=== PATIENT | female | born 1945 | race Caucasian/White ===

== ENCOUNTER 2023-10-06 13:25 | Inpatient (IN) | payer OTHER ==
[~2023-10-06] VITALS: Ht 157.5 cm; Wt 68.8 kg
[2023-10-06 14:03] VITALS: PULSE 114; RESP 21; O2SAT 97
[2023-10-06 14:46] LABS: Basophils # (auto) 0 10 ^3/uL (0-0.2); Basophils % (auto) 0.2 % (0.0-2.0); Eosinophils # (auto) 0 10 ^3/uL (0-0.8); Hemoglobin 13.7 g/dL (12.2-16.2); Lymphocytes # (auto) 0.4 10 ^3/uL (0.4-5.4); Lymphocytes % (auto) 3.6 % (10.0-50.0); Mean Corpuscular Hemoglobin 32.8 pg (28.0-32.0); Mean Corpuscular Hgb Conc. 32.6 g/dL (32.0-36.0); Mean Corpuscular Volume 100.6 fL (80.0-100.0); Monocytes # (auto) 0.7 10 ^3/uL (0-1.3); Monocytes % (auto) 6.7 % (0.0-12.0); Neutrophils # (auto) 9.4 10 ^3/uL (1.6-8.6); Neutrophils % (auto) 89.5 % (37.0-80.0); Red Blood Cells 4.18 10^6/uL (4.0-5.20); Red Cell Distribution Width 14.5 % (11.8-14.3); White Blood Cell 10.5 10^3/uL (4.4-10.8)
[2023-10-06 14:51] LABS: Urine Bacteria FEW /hpf (None Seen); Urine Blood 2+ /uL (Negative); Urine Clarity CLOUDY (Clear); Urine Color Yellow (Yellow); Urine Protein, UAD 2+ (Negative); Urine Specific Gravity 1.015 (1.001-1.035); Urine Urobilinogen Normal (Negative); Urine WBC 2136 /hpf (0 - 5); Urine WBC Clumps PRESENT /hpf (None Seen)
[2023-10-06] MEDS ORDERED: cefTRIAXone 1GM/50ML D5W 50 ML IV ONE ×2 (15:00→15:11)
[2023-10-06] MEDS ORDERED: SODIUM CHLORIDE 0.9% 1,000 ML IV ONE ×2 (15:00→16:45)
[2023-10-06 15:01] LABS: Alanine Aminotransferase 19 U/L (7-40); Alkaline Phosphatase 78 U/L (46-116); Anion Gap 11 (5-15); Aspartate Aminotransferase 26 U/L (13-40); BUN/Creatinine Ratio 11.9 (10.0-20.0); Blood Urea Nitrogen 23 mg/dL (9-23); Calcium 9.2 mg/dL (8.7-10.4); Carbon Dioxide 16 mmol/L (20-30); Chloride 102 mmol/L (98-107); Glucose 308 mg/dL (74-106); Potassium 4.9 mmol/L (3.5-5.1); Sodium 129 mmol/L (136-145)
[2023-10-06 15:02] LABS: Albumin 4.5 g/dL (3.2-4.8); Bilirubin, Total 0.4 mg/dL (0.2-1.0); Total Protein 6.9 g/dL (5.7-8.2)
[2023-10-06] MEDS ORDERED: ACETAMINOPHEN 325 MG TAB PO ONE ×2 (15:11→15:15)
[2023-10-06] MEDS ORDERED: DEXTROSE (50%) 50ML SYRG IV PRN ×2 (16:00→16:45)
[2023-10-06] MEDS ORDERED: NITROGLYCERIN 0.4 MG SL TAB SL PRN (16:45)
[2023-10-06] MEDS ORDERED: MECLIZINE HCL 25 MG TAB PO PRN (16:45)
[2023-10-06] MEDS ORDERED: MORPHINE SULFATE INJ 2 MG/ml SYRG IV PRN (16:45)
[2023-10-06] MEDS ORDERED: ATOR20TA50 PO (16:48)
[2023-10-06] MEDS ORDERED: ACYC1TAB2 PO (16:48)
[2023-10-06] MEDS ORDERED: ALBU108A5 INH (16:48)
[2023-10-06] MEDS ORDERED: NIFE1TAB31 PO (16:48)
[2023-10-06] MEDS ORDERED: HYDR1TAB97 PO (16:48)
[2023-10-06] MEDS ORDERED: LIDO1PAD55 TOP (16:48)
[2023-10-06] MEDS ORDERED: PREG-109 PO (16:48)
[2023-10-06] MEDS ORDERED: [UNRECOGNIZED DRUG - CODE] (16:48)
[2023-10-06] MEDS ORDERED: PANT40T PO (16:48)
[2023-10-06] MEDS ORDERED: DEXA4TAB PO (16:48)
[2023-10-06] MEDS ORDERED: TACR1CAP4 PO (16:48)
[2023-10-06] MEDS ORDERED: PRE5T PO (16:48)
[2023-10-06] MEDS ORDERED: InsuLIN REG 1unit/0.01ml Soln (100units/ml) SC SCH (17:00)
[2023-10-06] MEDS ORDERED: ACCU-CHEK COMFORT CURVE STRIP VI SCH (17:00)
[2023-10-06] MEDS ORDERED: HYDROcodone-ACET 5/325MG TAB PO ONE (17:00)
[2023-10-06] MEDS ORDERED: InsuLIN REG 1unit/0.01ml Soln (100units/ml) ONE ×2 (17:01→22:22)
[2023-10-06] MEDS ORDERED: HYDROcodone-ACET 5/325MG TAB ONE ×2 (17:02→21:28)
[2023-10-06] MEDS: InsuLIN REG 1unit/0.01ml Soln (100units/ml) SC SCH ×2 (17:03→22:07)
[2023-10-06] MEDS: ACCU-CHEK COMFORT CURVE STRIP VI SCH ×2 (17:04→22:06)
[2023-10-06] MEDS: SODIUM CHLORIDE 0.9% 1,000 ML IV SCH (18:36)
[2023-10-06 20:00] VITALS: PULSE 93; RESP 20; O2SAT 94
[2023-10-06] MEDS: HYDROcodone-ACET 5/325MG TAB PO PRN (21:29)
[2023-10-06] MEDS ORDERED: ACETAMINOPHEN 650 MG RECT SUPP PR PRN (21:45)
[2023-10-06] MEDS ORDERED: ACETAMINOPHEN 650 MG RECT SUPP PR ONE (22:00)
[2023-10-06] MEDS: TACROLIMUS 1 MG CAP PO SCH (22:00)
[2023-10-06] MEDS: PREGABALIN CAPSULE 75 MG CAP PO SCH (22:00)
[2023-10-06 23:09] LABS: Amphetamine Screen, Urine Neg (NEGATIVE); Barbiturate Scree,Urine Neg (NEGATIVE); Benzodiazephine Screen, Urine Neg (NEGATIVE); Cocaine Screen, Urine Neg (NEGATIVE); Opiate Scree,Urine Neg (NEGATIVE); Phencyclidine Screen, Urine Neg (NEGATIVE)
[2023-10-06 23:10] LABS: Cannabinoid Screen, Urine Neg (NEGATIVE)
[2023-10-07] MEDS: ACETAMINOPHEN 325 MG TAB PO PRN (04:29)
[2023-10-07 06:13] LABS: Basophils # (auto) 0 10 ^3/uL (0-0.2); Basophils % (auto) 0.3 % (0.0-2.0); Eosinophils # (auto) 0 10 ^3/uL (0-0.8); Hematocrit 35.7 % (36.0-46.0); Lymphocytes # (auto) 0.2 10 ^3/uL (0.4-5.4); Mean Corpuscular Hgb Conc. 33.6 g/dL (32.0-36.0); Mean Corpuscular Volume 98.1 fL (80.0-100.0); Monocytes # (auto) 0.4 10 ^3/uL (0-1.3); Monocytes % (auto) 4.9 % (0.0-12.0); Neutrophils % (auto) 91.8 % (37.0-80.0); Nucleated Red Blood Cells % 0.1 %; Red Blood Cells 3.64 10^6/uL (4.0-5.20); Red Cell Distribution Width 14.2 % (11.8-14.3); White Blood Cell 7.6 10^3/uL (4.4-10.8)
[2023-10-07 06:31] LABS: Alanine Aminotransferase 16 U/L (7-40); Albumin 3.7 g/dL (3.2-4.8); Alkaline Phosphatase 69 U/L (46-116); Anion Gap 13 (5-15); Aspartate Aminotransferase 22 U/L (13-40); BUN/Creatinine Ratio 15.3 (10.0-20.0); Bilirubin, Total 0.3 mg/dL (0.2-1.0); Blood Urea Nitrogen 24 mg/dL (9-23); Calcium 8.7 mg/dL (8.5-10.1); Carbon Dioxide 15 mmol/L (20-30); Chloride 110 mmol/L (98-107); Glucose 198 mg/dL (74-106); Potassium 4.3 mmol/L (3.5-5.1); Sodium 138 mmol/L (136-145); Total Protein 5.7 g/dL (5.7-8.2)
[2023-10-07] MEDS: ACCU-CHEK COMFORT CURVE STRIP VI SCH ×4 (07:07→21:34)
[2023-10-07] MEDS: InsuLIN REG 1unit/0.01ml Soln (100units/ml) SC SCH ×4 (07:09→21:50)
[2023-10-07] MEDS: HYDROcodone-ACET 5/325MG TAB PO PRN ×2 (08:03→21:49)
[2023-10-07] MEDS ORDERED: cefTRIAXone 1GM/50ML D5W 50 ML IV SCH (09:00)
[2023-10-07] MEDS: SODIUM CHLORIDE 0.9% 1,000 ML IV SCH ×2 (09:38→21:49)
[2023-10-07] MEDS ORDERED: SODI650T PO (09:41)
[2023-10-07] MEDS ORDERED: INSU100I52 SC (09:41)
[2023-10-07] MEDS ORDERED: INSLANTI SC (09:41)
[2023-10-07] MEDS ORDERED: NIFEdipine ER 30 MG TAB PO ONE (10:27)
[2023-10-07] MEDS ORDERED: PREGABALIN CAPSULE 75 MG CAP ONE (10:28)
[2023-10-07] MEDS: PREGABALIN CAPSULE 75 MG CAP PO SCH (10:30)
[2023-10-07] MEDS: PANTOPRAZOLE 40 MG TAB PO SCH (10:30)
[2023-10-07] MEDS: ATORVASTATIN 20 MG TAB PO SCH (10:30)
[2023-10-07] MEDS: NIFEdipine ER 30 MG TAB PO SCH (10:31)
[2023-10-07] MEDS: TACROLIMUS 1 MG CAP PO SCH ×2 (11:34→21:49)
[2023-10-07] MEDS ORDERED: SODIUM CHLORIDE 0.9% 1,000 ML IV SCH (12:30)
[2023-10-07] MEDS ORDERED: MEROPENEM 1GM IVPB 100 ML IV ONE ×3 (12:30→21:49)
[2023-10-07] MEDS ORDERED: SODIUM CHLORIDE 0.9% 500 ML IV ONE (12:30)
[2023-10-07] MEDS ORDERED: MEROPENEM 500 MG IV ONE (13:21)
[2023-10-07] MEDS ORDERED: hydrALAZINE HCL 20 MG/ML VL ONE (18:43)
[2023-10-07] MEDS: hydrALAZINE HCL 20 MG/ML VL IV PRN (18:45)
[2023-10-07 19:32] VITALS: PULSE 130; RESP 25; O2SAT 95
[2023-10-07] MEDS ORDERED: HYDROcodone-ACET 5/325MG TAB ONE (21:46)
[2023-10-07] MEDS: MEROPENEM 1GM IVPB 100 ML IV SCH (21:49)
[2023-10-08] MEDS: ACETAMINOPHEN 325 MG TAB PO PRN (02:23)
[2023-10-08 04:40] LABS: Alanine Aminotransferase 16 U/L (7-40); Albumin 3.4 g/dL (3.2-4.8); Alkaline Phosphatase 55 U/L (46-116); Anion Gap 12 (5-15); Aspartate Aminotransferase 25 U/L (13-40); Bilirubin, Total 0.3 mg/dL (0.2-1.0); Blood Urea Nitrogen 17 mg/dL (9-23); Calcium 8.2 mg/dL (8.7-10.4); Carbon Dioxide 13 mmol/L (20-30); Chloride 111 mmol/L (98-107); Glucose 163 mg/dL (74-106); Magnesium 1.9 mg/dL (1.6-2.6); Potassium 3.9 mmol/L (3.5-5.1); Sodium 136 mmol/L (136-145)
[2023-10-08 04:41] LABS: Total Protein 5.2 g/dL (5.7-8.2)
[2023-10-08 05:45] LABS: Basophils # (auto) 0 10 ^3/uL (0-0.2); Basophils % (auto) 0.4 % (0.0-2.0); Eosinophils # (auto) 0 10 ^3/uL (0-0.8); Hematocrit 35.8 % (36.0-46.0); Hemoglobin 11.6 g/dL (12.2-16.2); Lymphocytes # (auto) 0.4 10 ^3/uL (0.4-5.4); Lymphocytes % (auto) 4.3 % (10.0-50.0); Mean Corpuscular Hemoglobin 32.1 pg (28.0-32.0); Mean Corpuscular Hgb Conc. 32.4 g/dL (32.0-36.0); Mean Corpuscular Volume 99.3 fL (80.0-100.0); Monocytes # (auto) 0.5 10 ^3/uL (0-1.3); Monocytes % (auto) 5.6 % (0.0-12.0); Neutrophils # (auto) 8.2 10 ^3/uL (1.6-8.6); Neutrophils % (auto) 89.7 % (37.0-80.0); Red Blood Cells 3.61 10^6/uL (4.0-5.20); Red Cell Distribution Width 14.3 % (11.8-14.3); White Blood Cell 9.1 10^3/uL (4.4-10.8)
[2023-10-08] MEDS: InsuLIN REG 1unit/0.01ml Soln (100units/ml) SC SCH ×4 (07:00→22:46)
[2023-10-08 07:15] VITALS: PULSE 104; RESP 19; O2SAT 95
[2023-10-08] MEDS: ACCU-CHEK COMFORT CURVE STRIP VI SCH ×4 (07:45→22:45)
[2023-10-08] MEDS ORDERED: HYDROcodone-ACET 5/325MG TAB ONE (08:27)
[2023-10-08] MEDS: HYDROcodone-ACET 5/325MG TAB PO PRN (08:28)
[2023-10-08] MEDS: SODIUM CHLORIDE 0.9% 1,000 ML IV SCH ×2 (09:42→16:33)
[2023-10-08] MEDS: ATORVASTATIN 20 MG TAB PO SCH (10:18)
[2023-10-08] MEDS: PANTOPRAZOLE 40 MG TAB PO SCH (10:18)
[2023-10-08] MEDS: NIFEdipine ER 30 MG TAB PO SCH (10:19)
[2023-10-08] MEDS: PREGABALIN CAPSULE 75 MG CAP PO SCH (10:19)
[2023-10-08] MEDS: TACROLIMUS 1 MG CAP PO SCH ×2 (10:20→17:39)
[2023-10-08] MEDS ORDERED: MEROPENEM 1GM IVPB 100 ML IV ONE ×2 (10:40→22:54)
[2023-10-08] MEDS: MEROPENEM 1GM IVPB 100 ML IV SCH ×2 (10:41→22:58)
[2023-10-08] MEDS ORDERED: hydrALAZINE HCL 20 MG/ML VL ONE (16:44)
[2023-10-08] MEDS: hydrALAZINE HCL 20 MG/ML VL IV PRN (16:47)
[2023-10-08] MEDS: SODIUM BICARBONATE 650 MG TAB PO SCH ×2 (17:39→22:57)
[2023-10-08] MEDS ORDERED: SODIUM BICARBONATE 650 MG TAB ONE ×2 (17:39→22:54)
[2023-10-08] MEDS ORDERED: HYDROmorphone HCL 2 MG/ML VL/or syr ONE (17:50)
[2023-10-08] MEDS: HYDROmorphone HCL 2 MG/ML VL/or syr IV PRN (17:52)
[2023-10-08 20:12] VITALS: PULSE 107; RESP 15; O2SAT 92
[2023-10-08] MEDS ORDERED: ACETAMINOPHEN 650 MG RECT SUPP PR ONE (20:43)
[2023-10-09] MEDS: HYDROcodone-ACET 5/325MG TAB PO PRN ×3 (05:43→23:44)
[2023-10-09] MEDS: SODIUM BICARBONATE 650 MG TAB PO SCH ×4 (06:14→21:24)
[2023-10-09] MEDS: ACCU-CHEK COMFORT CURVE STRIP VI SCH ×4 (06:46→21:22)
[2023-10-09] MEDS: InsuLIN REG 1unit/0.01ml Soln (100units/ml) SC SCH ×4 (06:55→21:35)
[2023-10-09] MEDS ORDERED: TACROLIMUS 0.5 MG CAP PO SCH (07:00)
[2023-10-09 08:22] VITALS: PULSE 95; RESP 16; O2SAT 96
[2023-10-09] MEDS: PANTOPRAZOLE 40 MG TAB PO SCH (11:53)
[2023-10-09] MEDS: ATORVASTATIN 20 MG TAB PO SCH (11:53)
[2023-10-09] MEDS: PREGABALIN CAPSULE 75 MG CAP PO SCH (11:53)
[2023-10-09] MEDS: NIFEdipine ER 30 MG TAB PO SCH (11:53)
[2023-10-09] MEDS: MEROPENEM 1GM IVPB 100 ML IV SCH (11:54)
[2023-10-09 16:59] VITALS: BP 130/63; PULSE 91; RESP 20; TEMP 98.4; O2SAT 96
[2023-10-09 17:00] VITALS: BP 124/58; PULSE 98; RESP 22; TEMP 98.5; O2SAT 96
[2023-10-09] MEDS: SODIUM CHLORIDE 0.9% 1,000 ML IV SCH (18:27)
[2023-10-09] MEDS: TACROLIMUS 1 MG CAP PO SCH (18:28)
[2023-10-09 20:00] VITALS: PULSE 95; PULSE 99; RESP 20; O2SAT 93
[2023-10-09] MEDS: ACETAMINOPHEN 325 MG TAB PO PRN (21:30)
[2023-10-09 22:00] VITALS: BP 133/63; PULSE 95; RESP 20; TEMP 98.2; O2SAT 93
[2023-10-09] MEDS ORDERED: DOXYCYCLINE 100 MG TAB/CAP PO SCH (22:00)
[2023-10-09] MEDS: AMPICILLIN SOD 2GM INJ 2 GM in SODIUM CHL 0.9% 100 ML IV SCH (23:44)
[2023-10-10] VITALS (7 sets, daily range): BP systolic 131–163; BP diastolic 66–75; PULSE 86–103; RESP 18–20; TEMP 97.8–98.5; O2SAT 94–97
[2023-10-10] MEDS: AMPICILLIN SOD 2GM INJ 2 GM in SODIUM CHL 0.9% 100 ML IV SCH ×4 (06:17→23:38)
[2023-10-10] MEDS: ACCU-CHEK COMFORT CURVE STRIP VI SCH ×4 (06:17→23:04)
[2023-10-10] MEDS: SODIUM BICARBONATE 650 MG TAB PO SCH ×4 (06:17→22:57)
[2023-10-10] MEDS: TACROLIMUS 1 MG CAP PO SCH ×2 (06:17→18:09)
[2023-10-10] MEDS: InsuLIN REG 1unit/0.01ml Soln (100units/ml) SC SCH ×4 (06:29→23:04)
[2023-10-10] MEDS: ACETAMINOPHEN 325 MG TAB PO PRN ×2 (06:30→15:10)
[2023-10-10 06:47] LABS: Chloride 111 mmol/L (98-107); Potassium 3.9 mmol/L (3.5-5.1); Sodium 138 mmol/L (136-145)
[2023-10-10 06:48] LABS: Anion Gap 8 (5-15); Calcium 8.9 mg/dL (8.5-10.1); Carbon Dioxide 19 mmol/L (20-30)
[2023-10-10 06:53] LABS: Glucose 167 mg/dL (74-106)
[2023-10-10 06:54] LABS: Blood Urea Nitrogen 16 mg/dL (9-23)
[2023-10-10] MEDS: ATORVASTATIN 20 MG TAB PO SCH (10:28)
[2023-10-10] MEDS: PANTOPRAZOLE 40 MG TAB PO SCH (10:28)
[2023-10-10] MEDS: PREGABALIN CAPSULE 75 MG CAP PO SCH (10:28)
[2023-10-10] MEDS: NIFEdipine ER 30 MG TAB PO SCH (10:29)
[2023-10-10] MEDS ORDERED: PRED1PAK7 PO (10:33)
[2023-10-10] MEDS: HYDROcodone-ACET 5/325MG TAB PO PRN ×2 (10:36→18:44)
[2023-10-10] MEDS: SODIUM CHLORIDE 0.9% 1,000 ML IV SCH (16:30)
[2023-10-10] MEDS: hydrALAZINE HCL 20 MG/ML VL IV PRN (18:02)
[2023-10-10] MEDS ORDERED: ONDANSETRON HCL 4 MG/2 ML VIAL IV PRN (20:45)
[2023-10-10] MEDS: HYDROmorphone HCL 2 MG/ML VL/or syr IV PRN (21:36)
[2023-10-11] VITALS (8 sets, daily range): BP systolic 128–185; BP diastolic 51–78; PULSE 90–109; RESP 17–20; TEMP 97.1–98.9; O2SAT 95–100
[2023-10-11] MEDS: AMPICILLIN SOD 2GM INJ 2 GM in SODIUM CHL 0.9% 100 ML IV SCH ×4 (06:14→23:15)
[2023-10-11] MEDS: SODIUM BICARBONATE 650 MG TAB PO SCH ×4 (06:17→20:50)
[2023-10-11] MEDS: TACROLIMUS 1 MG CAP PO SCH ×2 (06:18→17:18)
[2023-10-11] MEDS: InsuLIN REG 1unit/0.01ml Soln (100units/ml) SC SCH ×4 (06:20→21:31)
[2023-10-11] MEDS: ACCU-CHEK COMFORT CURVE STRIP VI SCH ×4 (06:20→21:31)
[2023-10-11] MEDS: PREGABALIN CAPSULE 75 MG CAP PO SCH (09:29)
[2023-10-11] MEDS: NIFEdipine ER 30 MG TAB PO SCH (09:30)
[2023-10-11] MEDS: PANTOPRAZOLE 40 MG TAB PO SCH (09:30)
[2023-10-11] MEDS: ATORVASTATIN 20 MG TAB PO SCH (09:30)
[2023-10-11] MEDS ORDERED: predniSONE 5 MG TAB PO ONE (11:45)
[2023-10-11] MEDS: SODIUM CHLORIDE 0.9% 1,000 ML IV SCH (16:30)
[2023-10-11] MEDS: HYDROcodone-ACET 5/325MG TAB PO PRN (21:00)
[2023-10-11] MEDS: hydrALAZINE HCL 20 MG/ML VL IV PRN (21:02)
[2023-10-11] MEDS ORDERED: INSULIN LANTUS (GLARGINE) 1 /0.01ml (100units/ml) SC SCH (22:00)
[2023-10-11] MEDS: FLUTICASONE PROP NASAL SPR 0.05 % (50MCG) 16GM EACHNOSTRI SCH (22:13)
[2023-10-11] MEDS: ACETAMINOPHEN 325 MG TAB PO PRN (22:17)
[2023-10-12 04:35] VITALS: BP 163/113; PULSE 92; RESP 18; TEMP 98.2; O2SAT 95
[2023-10-12] MEDS: AMPICILLIN SOD 2GM INJ 2 GM in SODIUM CHL 0.9% 100 ML IV SCH ×2 (04:56→11:22)
[2023-10-12] MEDS: hydrALAZINE HCL 20 MG/ML VL IV PRN (04:56)
[2023-10-12] MEDS: ACETAMINOPHEN 325 MG TAB PO PRN (04:57)
[2023-10-12] MEDS: HYDROcodone-ACET 5/325MG TAB PO PRN (05:42)
[2023-10-12] MEDS: TACROLIMUS 1 MG CAP PO SCH (05:43)
[2023-10-12] MEDS: SODIUM BICARBONATE 650 MG TAB PO SCH ×3 (05:43→11:22)
[2023-10-12] MEDS: ACCU-CHEK COMFORT CURVE STRIP VI SCH ×2 (06:21→11:16)
[2023-10-12] MEDS: InsuLIN REG 1unit/0.01ml Soln (100units/ml) SC SCH ×2 (06:21→11:20)
[2023-10-12 06:51] LABS: Anion Gap 12 (5-15); Calcium 9.1 mg/dL (8.5-10.1); Carbon Dioxide 19 mmol/L (20-30); Chloride 107 mmol/L (98-107); Potassium 4.2 mmol/L (3.5-5.1); Sodium 138 mmol/L (136-145)
[2023-10-12 06:57] LABS: BUN/Creatinine Ratio 10.2 (10.0-20.0); Blood Urea Nitrogen 13 mg/dL (9-23); Glucose 275 mg/dL (74-106)
[2023-10-12 08:00] VITALS: PULSE 90; O2SAT 97
[2023-10-12 09:22] VITALS: BP 158/74; PULSE 92; RESP 17; TEMP 97.9; O2SAT 97
[2023-10-12] MEDS ORDERED: predniSONE 5 MG TAB PO SCH (10:00)
[2023-10-12] MEDS ORDERED: INSULIN LANTUS (GLARGINE) 1 /0.01ml (100units/ml) SC SCH ×2 (10:00→22:00)
[2023-10-12] MEDS: FLUTICASONE PROP NASAL SPR 0.05 % (50MCG) 16GM EACHNOSTRI SCH (10:13)
[2023-10-12] MEDS: PANTOPRAZOLE 40 MG TAB PO SCH (10:15)
[2023-10-12] MEDS: NIFEdipine ER 30 MG TAB PO SCH (10:15)
[2023-10-12] MEDS: ATORVASTATIN 20 MG TAB PO SCH (10:15)
[2023-10-12] MEDS: PREGABALIN CAPSULE 75 MG CAP PO SCH (10:30)
[2023-10-12] MEDS ORDERED: AMPI500C9 PO (10:58)
[2023-10-12 11:45] VITALS: BP 138/65; TEMP 36.6
[2023-10-12 13:28] VITALS: BP 147/70; PULSE 98; RESP 16; TEMP 98; O2SAT 97
== END 2023-10-12 16:05 | disposition home or self-care (01) | DRG 871 ==
LOC: EDBD 13:25 → ER 13:25 → TELE 16:46 → TELE-WESTW 10-09 14:08
PROVIDERS: ADMIT Nurse Practitioner Family; ATTEND Internal Medicine
DX: A41.9 Sepsis, unspecified organism (principal); G93.41 Metabolic encephalopathy; I21.A1 Myocardial infarction type 2; E87.1 Hypo-osmolality and hyponatremia; N17.9 Acute kidney failure, unspecified; N39.0 Urinary tract infection, site not specified; T86.19 Other complication of kidney transplant; C90.00 Multiple myeloma not having achieved remission; A02.9 Salmonella infection, unspecified; I12.0 Hypertensive chronic kidney disease with stage 5 chronic kidney disease or end stage renal disease; E11.22 Type 2 diabetes mellitus with diabetic chronic kidney disease; Y83.0 Surgical operation with transplant of whole organ as the cause of abnormal reaction of the patient, or of later complication, without mention of misadventure at the time of the procedure; Z85.6 Personal history of leukemia; Z99.2 Dependence on renal dialysis; Z91.041 Radiographic dye allergy status
CPT/HCPCS: 36415; 70450; 71045; 74176; 80048; 80053; 80197; 80307; 81001; 82140; 82962; 83036; 83605; 83735; 83930; 84484; 85025; 87040; 87077; 87086; 87088; 87186; 93886; 93971; 97110; 97116; 97163; 97530; 99291; G0378; J1815; J2185; J2405; J7507

== ENCOUNTER 2023-12-31 20:39 | Inpatient (IN) | payer OTHER ==
[~2023-12-31] VITALS: Ht 165.1 cm; Wt 71.2 kg
[~2023-12-31 20:39] MED LIST: ASPI81CH49 PO; ATOR20TA50 PO; BACDST PO; DEXA4TAB PO; FLUT1SPR5; HYDR1TAB97 PO; INSLANTI SC; INSU100I52 SC; LIDO1PAD55 TOP; NIF10C PO; PANT40T PO; PRED1PAK7 PO; PREG-109 PO; SODI650T PO; TACR1CAP4 PO; ZINC100T5 PO; [UNRECOGNIZED DRUG - CODE] SUBCUT
[2023-12-31] MEDS: SODIUM CHLORIDE 0.9% 2,200 ML IV ONE (21:10)
[2023-12-31 21:26] LABS: Urine Bacteria NONE SEEN /hpf (None Seen); Urine Blood 1+ /uL (Negative); Urine Clarity HAZY (Clear); Urine Color Colorless (Yellow); Urine Protein, UAD 1+ (Negative); Urine Specific Gravity 1.014 (1.001-1.035); Urine Urobilinogen Normal (Negative); Urine WBC 501 /hpf (0 - 5); Urine WBC Clumps PRESENT /hpf (None Seen)
[2023-12-31 21:30] VITALS: PULSE 123; RESP 22; O2SAT 95
[2023-12-31 21:41] LABS: Basophils # (auto) 0 10 ^3/uL (0-0.2); Basophils % (auto) 0.3 % (0.0-2.0); Eosinophils # (auto) 0 10 ^3/uL (0-0.8); Eosinophils % (auto) 0.1 % (0.0-7.0); Hematocrit 39.8 % (36.0-46.0); Hemoglobin 13.1 g/dL (12.2-16.2); Lymphocytes % (auto) 16.8 % (10.0-50.0); Mean Corpuscular Hemoglobin 32.3 pg (28.0-32.0); Mean Corpuscular Hgb Conc. 32.8 g/dL (32.0-36.0); Mean Corpuscular Volume 98.5 fL (80.0-100.0); Monocytes # (auto) 0.5 10 ^3/uL (0-1.3); Monocytes % (auto) 8.8 % (0.0-12.0); Neutrophils # (auto) 4.2 10 ^3/uL (1.6-8.6); Nucleated Red Blood Cells % 0.1 %; Red Blood Cells 4.04 10^6/uL (4.0-5.20); Red Cell Distribution Width 16.7 % (11.8-14.3); White Blood Cell 5.7 10^3/uL (4.4-10.8)
[2023-12-31] MEDS: PIPERACILLIN-TAZOB 3.375GM 100 ML IV ONE (22:04)
[2023-12-31] MEDS: ACETAMINOPHEN 500 MG TAB PO ONE (22:06)
[2023-12-31 22:56] LABS: Alanine Aminotransferase 11 U/L (7-40); Albumin 3.9 g/dL (3.2-4.8); Alkaline Phosphatase 87 U/L (46-116); Anion Gap 9 (5-15); Aspartate Aminotransferase 9 U/L (13-40); BUN/Creatinine Ratio 18.1 (10.0-20.0); Bilirubin, Total 0.3 mg/dL (0.2-1.0); Blood Urea Nitrogen 31 mg/dL (9-23); Calcium 8.7 mg/dL (8.7-10.4); Carbon Dioxide 20 mmol/L (20-30); Chloride 107 mmol/L (98-107); Potassium 4.6 mmol/L (3.5-5.1); Sodium 136 mmol/L (136-145); Total Protein 5.8 g/dL (5.7-8.2)
[2023-12-31] MEDS: VANCOMYCIN 1GM/200ML 200 ML IV ONE (23:04)
[2023-12-31 23:06] LABS: Glucose 401 mg/dL (74-106)
[2024-01-01] MEDS ORDERED: NITROGLYCERIN 0.4 MG SL TAB SL PRN
[2024-01-01] MEDS ORDERED: MORPHINE SULFATE INJ 2 MG/ml SYRG IV PRN
[2024-01-01] MEDS ORDERED: VANCOMYCIN PER PHARMACY 0 MG IV SCH
[2024-01-01] MEDS: ACCU-CHEK COMFORT CURVE STRIP VI SCH (00:40)
[2024-01-01] MEDS: InsuLIN REG 1unit/0.01ml Soln (100units/ml) SC SCH (00:51)
[2024-01-01] MEDS: SODIUM CHLORIDE 0.9% 1,000 ML IV SCH (00:52)
[2024-01-01] MEDS: INSULIN LANTUS (GLARGINE) 1 /0.01ml (100units/ml) SC ONE (00:52)
[2024-01-01 01:48] LABS: INR 1.03 (0.9-1.15); Partial Thromboplastin Time 27.6 SEC (24.5-34.5); Prothrombin Time 10.8 sec (9.3-11.8)
[2024-01-01] MEDS: HEPARIN SODIUM (PORCINE) 5000 UNITS/ML 1ML VIAL IV ONE ×2 (01:56→16:31)
[2024-01-01] MEDS: HEPARIN DRIP/D5W 100UNITS/ML 250 ML IV SCH ×2 (03:21→16:12)
[2024-01-01] MEDS: HYDROcodone-ACET 5/325MG TAB PO PRN (03:46)
[2024-01-01] MEDS ORDERED: InsuLIN REG 1unit/0.01ml Soln (100units/ml) SC SCH (04:00)
[2024-01-01 05:42] LABS: Alanine Aminotransferase 11 U/L (7-40); Albumin 3.7 g/dL (3.2-4.8); Alkaline Phosphatase 80 U/L (46-116); Anion Gap 11 (5-15); Aspartate Aminotransferase 12 U/L (13-40); BUN/Creatinine Ratio 12.9 (10.0-20.0); Bilirubin, Total 0.3 mg/dL (0.2-1.0); Blood Urea Nitrogen 19 mg/dL (9-23); Calcium 8.9 mg/dL (8.7-10.4); Carbon Dioxide 16 mmol/L (20-30); Chloride 110 mmol/L (98-107); Glucose 158 mg/dL (74-106); Potassium 3.9 mmol/L (3.5-5.1); Sodium 137 mmol/L (136-145); Total Protein 5.7 g/dL (5.7-8.2)
[2024-01-01] MEDS: INSULIN LANTUS (GLARGINE) 1 /0.01ml (100units/ml) SC SCH (07:00)
[2024-01-01 07:47] VITALS: PULSE 94
[2024-01-01] MEDS: DEXTROSE (50%) 50ML SYRG IV PRN (08:18)
[2024-01-01 09:26] LABS: Basophils # (auto) 0 10 ^3/uL (0-0.2); Basophils % (auto) 0.3 % (0.0-2.0); Eosinophils # (auto) 0 10 ^3/uL (0-0.8); Hematocrit 38.1 % (36.0-46.0); Hemoglobin 12.2 g/dL (12.2-16.2); Lymphocytes # (auto) 0.4 10 ^3/uL (0.4-5.4); Lymphocytes % (auto) 5.5 % (10.0-50.0); Mean Corpuscular Hemoglobin 31.4 pg (28.0-32.0); Mean Corpuscular Volume 98.3 fL (80.0-100.0); Monocytes # (auto) 0.5 10 ^3/uL (0-1.3); Neutrophils # (auto) 6.4 10 ^3/uL (1.6-8.6); Neutrophils % (auto) 87.2 % (37.0-80.0); Red Blood Cells 3.88 10^6/uL (4.0-5.20); Red Cell Distribution Width 16.6 % (11.8-14.3); White Blood Cell 7.3 10^3/uL (4.4-10.8)
[2024-01-01 09:41] LABS: INR 1.04 (0.9-1.15); Partial Thromboplastin Time 49.9 SEC (24.5-34.5); Prothrombin Time 10.9 sec (9.3-11.8)
[2024-01-01] MEDS: cefTRIAXone 1GM/50ML D5W 50 ML IV SCH (09:44)
[2024-01-01] MEDS: ASPirin 81 mg TAB PO SCH (10:00)
[2024-01-01] MEDS: ACETAMINOPHEN 325 MG TAB PO PRN (11:49)
[2024-01-01] MEDS: TACROLIMUS 1 MG CAP PO SCH (12:00)
[2024-01-01 14:37] LABS: Urine Bacteria NONE SEEN /hpf (None Seen); Urine Blood 1+ /uL (Negative); Urine Clarity HAZY (Clear); Urine Protein, UAD 1+ (Negative); Urine Specific Gravity 1.014 (1.001-1.035); Urine Urobilinogen Normal (Negative); Urine WBC 216 /hpf (0 - 5); Urine pH 6.5 (5.0-8.0)
[2024-01-01 14:38] LABS: Urine Color Yellow (Yellow)
[2024-01-01 14:44] LABS: Protein, Urine 117.8 mg/dL (0.0-11.9)
[2024-01-01 14:47] LABS: Creatinine, Urine 36.19 mg/dL (30.0-125.0)
[2024-01-01 15:56] LABS: Partial Thromboplastin Time 25.6 SEC (24.5-34.5); Prothrombin Time 10.5 sec (9.3-11.8)
[2024-01-01] MEDS: HEPARIN SODIUM (PORCINE) 5000 UNITS/ML 1ML VIAL ONE (16:14)
[2024-01-01] MEDS: VANCOMYCIN 750mg/150ml 150 ML IV SCH (18:59)
[2024-01-01 20:00] VITALS: PULSE 100
[2024-01-01] MEDS: ONDANSETRON HCL 4 MG/2 ML VIAL IV PRN (20:22)
[2024-01-01] MEDS: dilTIAZem 25 MG/5 ML VIAL IV ONE (21:35)
[2024-01-01] MEDS: ATORVASTATIN 20 MG TAB PO SCH (21:59)
[2024-01-01 22:00] VITALS: PULSE 92; RESP 18; TEMP 99.7; O2SAT 95
[2024-01-01 22:55] LABS: INR 1.04 (0.9-1.15); Prothrombin Time 10.9 sec (9.3-11.8)
[2024-01-01 23:08] LABS: Partial Thromboplastin Time 91.4 SEC (24.5-34.5)
[2024-01-02] VITALS (8 sets, daily range): BP systolic 128–185; BP diastolic 59–74; PULSE 78–105; RESP 17–20; TEMP 97.6–98.3; O2SAT 96–100
[2024-01-02] MEDS: METOPROLOL TARTRATE 1MG/1ML-5ML VIAL IV ONE (00:11)
[2024-01-02] MEDS: HEPARIN DRIP/D5W 100UNITS/ML 250 ML IV SCH ×2 (00:42→08:44)
[2024-01-02] MEDS ORDERED: NIFE1TAB31 PO (01:21)
[2024-01-02 06:34] LABS: INR 1.02 (0.9-1.15); Partial Thromboplastin Time 48.8 SEC (24.5-34.5); Prothrombin Time 10.7 sec (9.3-11.8)
[2024-01-02 06:36] LABS: Basophils # (auto) 0 10 ^3/uL (0-0.2); Basophils % (auto) 0.4 % (0.0-2.0); Eosinophils # (auto) 0 10 ^3/uL (0-0.8); Eosinophils % (auto) 0.2 % (0.0-7.0); Hematocrit 37.3 % (36.0-46.0); Hemoglobin 12.1 g/dL (12.2-16.2); Mean Corpuscular Hemoglobin 31.9 pg (28.0-32.0); Mean Corpuscular Hgb Conc. 32.3 g/dL (32.0-36.0); Mean Corpuscular Volume 98.7 fL (80.0-100.0); Monocytes # (auto) 0.3 10 ^3/uL (0-1.3); Monocytes % (auto) 6.2 % (0.0-12.0); Neutrophils # (auto) 4.1 10 ^3/uL (1.6-8.6); Neutrophils % (auto) 74.2 % (37.0-80.0); Red Blood Cells 3.78 10^6/uL (4.0-5.20); Red Cell Distribution Width 16.1 % (11.8-14.3); White Blood Cell 5.5 10^3/uL (4.4-10.8)
[2024-01-02 06:46] LABS: Alanine Aminotransferase 11 U/L (7-40); Albumin 3.5 g/dL (3.2-4.8); Alkaline Phosphatase 69 U/L (46-116); Anion Gap 7 (5-15); Aspartate Aminotransferase 16 U/L (13-40); BUN/Creatinine Ratio 15.2 (10.0-20.0); Blood Urea Nitrogen 19 mg/dL (9-23); Calcium 9.2 mg/dL (8.7-10.4); Carbon Dioxide 18 mmol/L (20-30); Chloride 110 mmol/L (98-107); Glucose 172 mg/dL (74-106); Potassium 4.2 mmol/L (3.5-5.1); Sodium 135 mmol/L (136-145); Uric Acid 3.1 mg/dL (3.1-7.8)
[2024-01-02 06:47] LABS: Bilirubin, Total 0.2 mg/dL (0.2-1.0); Total Protein 5.3 g/dL (5.7-8.2)
[2024-01-02] MEDS ORDERED: FLUTICASONE PROP NASAL SPR 0.05 % (50MCG) 16GM PRN (12:15)
[2024-01-02] MEDS: InsuLIN REG 1unit/0.01ml Soln (100units/ml) SC SCH (12:30)
[2024-01-02] MEDS: ACCU-CHEK COMFORT CURVE STRIP VI SCH (12:30)
[2024-01-02] MEDS: DOCUSATE SOD 100 MG CAP PO PRN (12:57)
[2024-01-02] MEDS: predniSONE 5 MG TAB PO ONE (12:57)
[2024-01-02] MEDS: NIFEdipine ER 30 MG TAB PO ONE (12:57)
[2024-01-02] MEDS: SODIUM BICARBONATE 650 MG TAB PO SCH (21:56)
[2024-01-02] MEDS: PREGABALIN CAPSULE 75 MG CAP PO SCH (21:57)
[2024-01-03] VITALS (7 sets, daily range): BP systolic 108–137; BP diastolic 54–69; PULSE 76–87; RESP 16–20; TEMP 97.9–98.4; O2SAT 95–98
[2024-01-03] MEDS: INSULIN LANTUS (GLARGINE) 1 /0.01ml (100units/ml) SC SCH (06:20)
[2024-01-03 06:24] LABS: Anion Gap 9 (5-15); Carbon Dioxide 21 mmol/L (20-30); Chloride 109 mmol/L (98-107); Potassium 4.2 mmol/L (3.5-5.1); Sodium 139 mmol/L (136-145)
[2024-01-03 06:25] LABS: Calcium 9.4 mg/dL (8.5-10.1)
[2024-01-03 06:30] LABS: BUN/Creatinine Ratio 16.5 (10.0-20.0); Blood Urea Nitrogen 20 mg/dL (9-23); Glucose 99 mg/dL (74-106)
[2024-01-03] MEDS: ZINC SULFATE 220mg CAP or TAB PO SCH (09:58)
[2024-01-03] MEDS: NIFEdipine ER 30 MG TAB PO SCH (09:58)
[2024-01-03] MEDS: predniSONE 5 MG TAB PO SCH (09:58)
[2024-01-03] MEDS ORDERED: ATORVASTATIN 20 MG TAB PO SCH (10:00)
[2024-01-04] VITALS (7 sets, daily range): BP systolic 118–146; BP diastolic 56–71; PULSE 72–87; RESP 16–20; TEMP 97.6–98.3; O2SAT 95–99
[2024-01-04 05:59] LABS: Anion Gap 8 (5-15); Carbon Dioxide 23 mmol/L (20-30); Chloride 109 mmol/L (98-107); Potassium 4.3 mmol/L (3.5-5.1); Sodium 140 mmol/L (136-145)
[2024-01-04 06:01] LABS: Calcium 9.3 mg/dL (8.5-10.1)
[2024-01-04 06:05] LABS: Glucose 87 mg/dL (74-106)
[2024-01-04 06:06] LABS: BUN/Creatinine Ratio 17.5 (10.0-20.0); Blood Urea Nitrogen 25 mg/dL (9-23)
[2024-01-04] MEDS: levoFLOXacin 500MG 100 ML IV ONE (23:49)
[2024-01-05 01:00] VITALS: BP 136/36; PULSE 80; RESP 20; TEMP 96.6; O2SAT 96
[2024-01-05 05:00] VITALS: BP 103/57; PULSE 62; RESP 20; TEMP 97.5; O2SAT 97
[2024-01-05 08:00] VITALS: BP 141/73; PULSE 71; PULSE 74; RESP 18; TEMP 97.9; O2SAT 95
[2024-01-05 08:27] VITALS: BP 141/73; PULSE 74; RESP 18; TEMP 97.9; O2SAT 95
[2024-01-05] MEDS ORDERED: levoFLOXacin 250 MG TAB PO SCH (10:00)
[2024-01-05] MEDS: SULFAMETHOX W/TRIMETH(800/160MG) DS TAB PO SCH (10:45)
[2024-01-05] MEDS ORDERED: BACDST PO (11:50)
[2024-01-05 12:19] VITALS: BP 151/79; PULSE 76; RESP 18; TEMP 97.7; O2SAT 100
[2024-01-05 12:55] VITALS: BP 151/79; PULSE 76; RESP 18; TEMP 97.7; O2SAT 100
== END 2024-01-05 14:13 | disposition home or self-care (01) | DRG 871 ==
LOC: EDBD 20:39 → ER 20:39 → TELE 01-01 00:09 → TELE-WESTW 01-01 18:21
PROVIDERS: ADMIT Nurse Practitioner Family; ATTEND Internal Medicine Geriatric Medicine
DX: A41.89 Other specified sepsis (principal); I21.A1 Myocardial infarction type 2; N17.0 Acute kidney failure with tubular necrosis; N18.6 End stage renal disease; N39.0 Urinary tract infection, site not specified; C90.00 Multiple myeloma not having achieved remission; I12.0 Hypertensive chronic kidney disease with stage 5 chronic kidney disease or end stage renal disease; Z94.0 Kidney transplant status; A02.9 Salmonella infection, unspecified; I16.0 Hypertensive urgency; E11.22 Type 2 diabetes mellitus with diabetic chronic kidney disease; E11.65 Type 2 diabetes mellitus with hyperglycemia; B96.89 Other specified bacterial agents as the cause of diseases classified elsewhere
CPT/HCPCS: 36415; 70450; 71045; 80048; 80053; 80197; 80202; 81001; 82570; 82962; 83605; 83735; 84156; 84300; 84484; 84550; 85025; 85610; 85730; 87040; 87077; 87086; 87186; 93005; 96365; G0378; J1815; J2405; J2543; J7507

== ENCOUNTER 2024-08-04 04:22 | Inpatient (IN) | payer OTHER ==
[~2024-08-04] VITALS: Ht 160 cm; Wt 70.5 kg
[~2024-08-04 04:22] MED LIST changes: +ACET-1881 PO; +ACYC200C22 PO; -BACDST PO; +DOCU-94 PO; +DOXY1CAP57 PO; -LIDO1PAD55 TOP; +MULT-1018 PO; -NIF10C PO; +NIFE1TAB31 PO; +POLY335015 PO; -PREG-109 PO; +PREG75CA90 PO; -ZINC100T5 PO; +ZINC220C8 PO
[2024-08-04 06:00] VITALS: PULSE 110; RESP 20; O2SAT 97
[2024-08-04 06:11] LABS: Hemoglobin 15.2 g/dL (12.2-16.2)
[2024-08-04 06:21] LABS: Hematocrit 45.3 % (36.0-46.0); Mean Corpuscular Hemoglobin 33.1 pg (28.0-32.0); Mean Corpuscular Hgb Conc. 33.5 g/dL (32.0-36.0); Mean Corpuscular Volume 98.7 fL (80.0-100.0); Platelet Count (auto) 283 10^3/uL (140-450); Red Blood Cells 4.58 10^6/uL (4.0-5.20); Red Cell Distribution Width 14.5 % (11.8-14.3); White Blood Cell 7.6 10^3/uL (4.4-10.8)
[2024-08-04 06:24] LABS: Basophils % (manual) 0 (0.0-2.0); Blast Cells 0; Eosinophils % (manual) 0 (0-7); Metamyelocytes % 0; Myelocytes % 0; Promyelocytes % 0; Reactive Lymphocytes 0
[2024-08-04 06:29] LABS: Alanine Aminotransferase 19 U/L (7-40); Albumin 4.4 g/dL (3.2-4.8); Alkaline Phosphatase 86 U/L (46-116); Anion Gap 13 (5-15); Aspartate Aminotransferase 16 U/L (13-40); BUN/Creatinine Ratio 20.3 (10.0-20.0); Blood Urea Nitrogen 35 mg/dL (9-23); Calcium 9.8 mg/dL (8.7-10.4); Carbon Dioxide 18 mmol/L (20-31); Chloride 110 mmol/L (98-107); Glucose 354 mg/dL (74-106); Lipase 29 U/L (12-53); Potassium 4.7 mmol/L (3.5-5.1); Sodium 141 mmol/L (136-145)
[2024-08-04 06:30] LABS: Bilirubin, Total 0.3 mg/dL (0.2-1.0)
[2024-08-04] MEDS: SODIUM CHLORIDE 0.9% 1,000 ML IV ONE (07:04)
[2024-08-04] MEDS: ONDANSETRON HCL 4 MG/2 ML VIAL IV ONE (07:04)
[2024-08-04 08:05] LABS: Band Neutrophils % (manual) 29; Lymphocytes % (manual) 13 (10.0-50.0); Monocytes % (manual) 1 (0-12)
[2024-08-04 08:06] LABS: Platelet Estimate Adequate
[2024-08-04 08:30] VITALS: RESP 16; O2SAT 96
[2024-08-04] MEDS: metroNIDAZOLE 500MG/100ML 100 ML IV ONE (08:53)
[2024-08-04] MEDS: cefTRIAXone 1GM/50ML D5W 50 ML IV ONE (08:53)
[2024-08-04] MEDS: ACETAMINOPHEN 500 MG TAB PO ONE (10:09)
[2024-08-04] MEDS: MORPHINE SULFATE INJ 2 MG/ml SYRG IV ONE (10:25)
[2024-08-04] MEDS ORDERED: DEXTROSE (50%) 50ML SYRG IV PRN (10:45)
[2024-08-04] MEDS ORDERED: NITROGLYCERIN 0.4 MG SL TAB SL PRN (10:45)
[2024-08-04] MEDS ORDERED: DOCUSATE SOD 100 MG CAP PO PRN (10:45)
[2024-08-04] MEDS: PIPERACILLIN-TAZOB 3.375GM 100 ML IV ONE (11:34)
[2024-08-04] MEDS: SODIUM CHLORIDE 0.9% 1,000 ML IV SCH (11:34)
[2024-08-04] MEDS: ACCU-CHEK COMFORT CURVE STRIP VI SCH (12:00)
[2024-08-04] MEDS: InsuLIN REG 1unit/0.01ml Soln (100units/ml) SC SCH (12:00)
[2024-08-04 17:24] VITALS: BP 123/53; PULSE 86; RESP 15; TEMP 98.2; O2SAT 100
[2024-08-04] MEDS ORDERED: PANT40TA2 PO (18:17)
[2024-08-04] MEDS ORDERED: POLY335015 PO (18:17)
[2024-08-04] MEDS ORDERED: METH-1286 PO (18:17)
[2024-08-04] MEDS ORDERED: HYDR-4798 PO (18:17)
[2024-08-04] MEDS ORDERED: TACR1GRA PO (18:17)
[2024-08-04] MEDS ORDERED: [UNRECOGNIZED DRUG - CODE] IV (18:17)
[2024-08-04] MEDS ORDERED: ASCO500T11 PO (18:17)
[2024-08-04] MEDS ORDERED: LOSA-533 PO (18:17)
[2024-08-04] MEDS ORDERED: PRED1PAK8 PO (18:17)
[2024-08-04] MEDS ORDERED: DEXA0.5E4 PO (18:17)
[2024-08-04] MEDS ORDERED: INSLANTI SC (18:17)
[2024-08-04] MEDS ORDERED: DOCU-94 PO (18:17)
[2024-08-04] MEDS ORDERED: ZINC100T5 PO (18:17)
[2024-08-04] MEDS ORDERED: MULT-1018 PO (18:17)
[2024-08-04] MEDS ORDERED: SODI650T PO (18:17)
[2024-08-04] MEDS ORDERED: NIFE1TAB31 PO (18:17)
[2024-08-04] MEDS ORDERED: DICL1GEL59 EX (18:17)
[2024-08-04] MEDS ORDERED: ATOR20TA PO (18:17)
[2024-08-04] MEDS ORDERED: PREG75CA PO (18:17)
[2024-08-04] MEDS ORDERED: ASPI1TAB20 PO (18:17)
[2024-08-04] MEDS ORDERED: ALBUAER3 IN (18:17)
[2024-08-04] MEDS: PIPERACILLIN-TAZOB 3.375GM 100 ML IV SCH (18:21)
[2024-08-04] MEDS: LACTATED RINGER'S 1,000 ML IV SCH (18:22)
[2024-08-04] MEDS: MORPHINE SULFATE INJ 2 MG/ml SYRG IV PRN (18:25)
[2024-08-04 20:00] VITALS: PULSE 107; PULSE 87; RESP 20; O2SAT 100
[2024-08-04 21:00] VITALS: BP 146/57; PULSE 107; RESP 20; TEMP 97.1; O2SAT 100
[2024-08-04] MEDS: TACROLIMUS 1 MG CAP PO SCH (22:41)
[2024-08-05] VITALS (8 sets, daily range): BP systolic 117–155; BP diastolic 52–70; PULSE 61–97; RESP 16–20; TEMP 97–98.8; O2SAT 94–100
[2024-08-05 06:27] LABS: Basophils # (auto) 0 10 ^3/uL (0-0.2); Basophils % (auto) 0.3 % (0.0-2.0); Eosinophils # (auto) 0.1 10 ^3/uL (0-0.8); Eosinophils % (auto) 0.6 % (0.0-7.0); Hematocrit 37.6 % (36.0-46.0); Hemoglobin 11.8 g/dL (12.2-16.2); Lymphocytes # (auto) 1.1 10 ^3/uL (0.4-5.4); Lymphocytes % (auto) 6.7 % (10.0-50.0); Mean Corpuscular Hemoglobin 32.4 pg (28.0-32.0); Mean Corpuscular Hgb Conc. 31.3 g/dL (32.0-36.0); Mean Corpuscular Volume 103.7 fL (80.0-100.0); Monocytes # (auto) 0.5 10 ^3/uL (0-1.3); Neutrophils # (auto) 14.5 10 ^3/uL (1.6-8.6); Neutrophils % (auto) 89.4 % (37.0-80.0); Platelet Count (auto) 249 10^3/uL (140-450); Red Blood Cells 3.63 10^6/uL (4.0-5.20); Red Cell Distribution Width 16.2 % (11.8-14.3); White Blood Cell 16.1 10^3/uL (4.4-10.8)
[2024-08-05 06:51] LABS: Alanine Aminotransferase 10 U/L (7-40); Albumin 3.5 g/dL (3.2-4.8); Alkaline Phosphatase 63 U/L (46-116); Anion Gap 7 (5-15); Aspartate Aminotransferase 9 U/L (13-40); BUN/Creatinine Ratio 18.7 (10.0-20.0); Blood Urea Nitrogen 32 mg/dL (9-23); Calcium 9.2 mg/dL (8.7-10.4); Carbon Dioxide 20 mmol/L (20-31); Chloride 114 mmol/L (98-107); Glucose 108 mg/dL (74-106); Potassium 4.3 mmol/L (3.5-5.1); Sodium 141 mmol/L (136-145)
[2024-08-05 06:52] LABS: Bilirubin, Total 0.5 mg/dL (0.2-1.0); Total Protein 5.2 g/dL (5.7-8.2)
[2024-08-05] MEDS: ENOXAPARIN SOD 30 MG/0.3 ML SYRINGE SC SCH (10:29)
[2024-08-05] MEDS: predniSONE 5 MG TAB PO SCH (10:30)
[2024-08-05] MEDS: HYDROcodone-ACET 10/325MG TAB PO PRN (13:53)
[2024-08-05] MEDS: ONDANSETRON HCL 4 MG/2 ML VIAL IV PRN (17:38)
[2024-08-05] MEDS: PREGABALIN CAPSULE 75 MG CAP PO SCH (22:17)
[2024-08-06] VITALS (10 sets, daily range): BP systolic 112–160; BP diastolic 55–78; PULSE 73–87; RESP 18–20; TEMP 97.3–98.4; O2SAT 94–98
[2024-08-06 05:05] LABS: Urine Bacteria None Seen /hpf (None Seen); Urine Blood Negative /uL (Negative); Urine Clarity Clear (Clear); Urine Protein, UAD TRACE (Negative); Urine Specific Gravity 1.007 (1.001-1.035); Urine Urobilinogen Normal (Negative); Urine WBC 8 /hpf (0 - 5)
[2024-08-06 05:13] LABS: Urine Color STRAW (Yellow)
[2024-08-06 06:14] LABS: Anion Gap 9 (5-15); Carbon Dioxide 20 mmol/L (20-31); Chloride 113 mmol/L (98-107); Sodium 142 mmol/L (136-145)
[2024-08-06 06:15] LABS: Calcium 9.6 mg/dL (8.7-10.4)
[2024-08-06 06:20] LABS: BUN/Creatinine Ratio 15.2 (10.0-20.0); Blood Urea Nitrogen 22 mg/dL (9-23); Glucose 141 mg/dL (74-106)
[2024-08-06] MEDS ORDERED: ALBUTEROL SULF HFA 90MCG INH 200DOSE IN SCH (18:00)
[2024-08-06] MEDS ORDERED: ALBUTEROL SULF 2.5 MG/0.5ML(0.5%) NEB SOLN NEB PRN (18:00)
[2024-08-06] MEDS: METHENAMINE 1 GM PO SCH (20:26)
[2024-08-06] MEDS: LIDOCAINE HCL 5 % TOP OINT 35 GM TOP PRN (20:30)
[2024-08-06] MEDS: LIDOCAINE 5% OINTMENT TOP SCH (20:44)
[2024-08-06] MEDS: cloNIDine HCL 0.1 MG TAB PO ONE (22:30)
[2024-08-07] VITALS (8 sets, daily range): BP systolic 94–219; BP diastolic 48–104; PULSE 62–81; RESP 17–20; TEMP 97.4–98.2; O2SAT 96–98
[2024-08-07 06:45] LABS: Basophils # (auto) 0 10 ^3/uL (0-0.2); Basophils % (auto) 0.4 % (0.0-2.0); Eosinophils # (auto) 0.1 10 ^3/uL (0-0.8); Eosinophils % (auto) 1.3 % (0.0-7.0); Hematocrit 34.6 % (36.0-46.0); Hemoglobin 11.5 g/dL (12.2-16.2); Lymphocytes # (auto) 0.9 10 ^3/uL (0.4-5.4); Lymphocytes % (auto) 15.1 % (10.0-50.0); Mean Corpuscular Hemoglobin 32.6 pg (28.0-32.0); Mean Corpuscular Hgb Conc. 33.4 g/dL (32.0-36.0); Mean Corpuscular Volume 97.7 fL (80.0-100.0); Monocytes # (auto) 0.3 10 ^3/uL (0-1.3); Monocytes % (auto) 4.3 % (0.0-12.0); Neutrophils % (auto) 78.9 % (37.0-80.0); Nucleated Red Blood Cells % 0.3 %; Platelet Count (auto) 244 10^3/uL (140-450); Red Blood Cells 3.54 10^6/uL (4.0-5.20); Red Cell Distribution Width 14.6 % (11.8-14.3); White Blood Cell 6.3 10^3/uL (4.4-10.8)
[2024-08-07 07:03] LABS: Chloride 113 mmol/L (98-107); Potassium 3.9 mmol/L (3.5-5.1); Sodium 143 mmol/L (136-145)
[2024-08-07 07:04] LABS: Anion Gap 9 (5-15); Carbon Dioxide 21 mmol/L (20-31)
[2024-08-07 07:05] LABS: Calcium 9.7 mg/dL (8.7-10.4)
[2024-08-07 07:09] LABS: BUN/Creatinine Ratio 12.3 (10.0-20.0); Blood Urea Nitrogen 16 mg/dL (9-23); Glucose 161 mg/dL (74-106)
[2024-08-07 08:06] LABS: Immunoglobulin A 5 mg/dL (64-422); Immunoglobulin G, Serum 254 mg/dL (586-1602); Immunoglobulin M 10 mg/dL (26-217)
[2024-08-07] MEDS: FLUTICASONE PROP NASAL SPR 0.05 % (50MCG) 16GM EACHNOSTRI SCH (10:00)
[2024-08-07] MEDS: LOSARTAN POTASSIUM 25 MG TAB PO ONE (12:30)
[2024-08-07] MEDS: NIFEdipine ER 30 MG TAB PO ONE (14:27)
[2024-08-08 01:00] VITALS: BP 159/74; PULSE 73; RESP 20; TEMP 97.9; O2SAT 95
[2024-08-08 02:23] VITALS: O2SAT 100
[2024-08-08 05:00] VITALS: BP 151/64; PULSE 94; RESP 20; TEMP 98; O2SAT 98
[2024-08-08 05:08] LABS: Albumin 2.6 g/dL (2.9-4.4); Alpha-1-Globulin 0.5 g/dL (0.0-0.4); Gamma Globulin 0.4 g/dL (0.4-1.8); Globulin Total 2.5 g/dL (2.2-3.9); Protein Total Serum 5.1 g/dL (6.0-8.5)
[2024-08-08 07:32] LABS: Chloride 113 mmol/L (98-107); Potassium 4.4 mmol/L (3.5-5.1); Sodium 141 mmol/L (136-145)
[2024-08-08 07:33] LABS: Anion Gap 8 (5-15); Carbon Dioxide 20 mmol/L (20-31)
[2024-08-08 07:34] LABS: Calcium 9.7 mg/dL (8.7-10.4)
[2024-08-08 07:38] LABS: BUN/Creatinine Ratio 13.2 (10.0-20.0); Blood Urea Nitrogen 16 mg/dL (9-23); Glucose 223 mg/dL (74-106)
[2024-08-08] MEDS: LOSARTAN POTASSIUM 25 MG TAB PO SCH (08:36)
[2024-08-08] MEDS: NIFEdipine ER 30 MG TAB PO SCH (08:36)
[2024-08-08 08:52] VITALS: BP 168/76; PULSE 80; RESP 22; TEMP 98.1; O2SAT 94
[2024-08-08 12:05] VITALS: BP 143/78; PULSE 71
== END 2024-08-08 12:54 | disposition home or self-care (01) | DRG 698 ==
LOC: ER 04:22 → EDBD 04:22 → TELE 11:06 → TELE-WESTW 16:47
PROVIDERS: ADMIT Nurse Practitioner Family; ATTEND Internal Medicine Geriatric Medicine
DX: T86.12 Kidney transplant failure (principal); G93.41 Metabolic encephalopathy; N17.0 Acute kidney failure with tubular necrosis; N10 Acute pyelonephritis; C90.00 Multiple myeloma not having achieved remission; A08.4 Viral intestinal infection, unspecified; K52.9 Noninfective gastroenteritis and colitis, unspecified; I12.9 Hypertensive chronic kidney disease with stage 1 through stage 4 chronic kidney disease, or unspecified chronic kidney disease; N18.9 Chronic kidney disease, unspecified; E11.65 Type 2 diabetes mellitus with hyperglycemia; Y83.0 Surgical operation with transplant of whole organ as the cause of abnormal reaction of the patient, or of later complication, without mention of misadventure at the time of the procedure; K80.20 Calculus of gallbladder without cholecystitis without obstruction; E86.0 Dehydration; E11.22 Type 2 diabetes mellitus with diabetic chronic kidney disease; Z88.0 Allergy status to penicillin; Z88.1 Allergy status to other antibiotic agents; Z83.3 Family history of diabetes mellitus; Z88.8 Allergy status to other drugs, medicaments and biological substances; Z79.82 Long term (current) use of aspirin; Z79.4 Long term (current) use of insulin; Z79.899 Other long term (current) drug therapy
CPT/HCPCS: 36415; 70450; 74176; 80048; 80053; 81001; 82010; 82784; 82962; 83036; 83605; 83690; 84155; 84165; 84484; 85007; 85025; 85027; 85048; 86334; 87040; 87045; 87086; 87427; 87493; 93005; 96365; 96375; 97110; 97116; 99291; G0378; J1815; J2405; J2543; J3490; J7507

== ENCOUNTER 2024-11-20 05:52 | Inpatient (IN) | payer OTHER ==
[~2024-11-20] VITALS: Ht 167.6 cm; Wt 64.2 kg
[~2024-11-20 05:52] MED LIST changes: +ALBUAER3 IN; +ASCO500T11 PO; +ASPI1TAB20 PO; -ASPI81CH49 PO; +ATOR20TA PO; -ATOR20TA50 PO; +DICL1GEL59 EX; -DOXY1CAP57 PO; +HYDR-4798 PO; +LOS25T PO; +LOSA-533 PO; +METH-1286 PO; +PRE5T PO; +PREG75CA PO; -PREG75CA90 PO; -TACR1CAP4 PO; +TACR1GRA PO; +[UNRECOGNIZED DRUG - CODE] IV; -[UNRECOGNIZED DRUG - CODE] SUBCUT
--- NOTE | 2024-11-20 06:20 | DVH ---
EXAM: CT Head Without Intravenous Contrast CLINICAL INDICATION: R/O STROKE TECHNIQUE: Axial computed tomography images of the head/brain without intravenous contrast. This CT exam was performed using one or more of the following dose reduction techniques: automated exposure control, adjustment of the mA and/or kV according to patient size, and/or use of iterative reconstru ction technique. RADIATION DOSE: CTDlvol= 53.9 mGy, DLP= 973.79 mGy-cm COMPARISON: None FINDINGS: BRAIN AND EXTRA-AXIAL SPACES: Unremarkable. No hemorrhage. No significant white matter disease. N o edema. No ventriculomegaly. BONES/JOINTS: Unremarkable. No acute fracture. SOFT TISSUES: Unremarkable. SINUSES: Unremarkable as visualized. No acute sinusitis. MASTOID AIR CELLS: Unremarkable as visualized. No mastoid effusion. OTHER FINDINGS: . . IMPRESSION: No acute intracranial hemorrhage, midline shift or mass effect. Findings were discussed with Dr. Valderrama on 11/12/2024 at 6:14 a.m.
--- NOTE | 2024-11-20 06:23 | ED.PDOC ---
Altered Mental Status HPI Comments 78 y/o F, brought in by ambulance presents to the ED for CC of ALOC. Per EMS, upon arrival to scene patient was found unresponsive in bathroom by family and unable to answer questions. Upon arrival to ED, patient is A&0X4; and is actively vomiting. Patient currently complains of nausea and headache. Patient relays, she takes baby aspirin and denies any over medications. Patient denies hitting her head, dysuria, hematuria, or diarrhea. No other symptoms or modifiers at this time. 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, Medications, Allergies Allergies: Coded Allergies: Levofloxacin (Verified Allergy, Unknown, 11/20/24) Patiromer (Verified Allergy, Unknown, 11/20/24) Penicillins (Verified Allergy, Unknown, 11/20/24) Sulfa Antibiotics (Verified Allergy, Unknown, 11/20/24) Information Source: Patient, Emergency Med Personnel Mode of Arrival: EMS Severity: Mild Timing: Hours Duration: Since onset Prehospital treatment: None Quality: Decreased Alertness Recent: Nausea, Vomiting Associated Signs and Symptoms: None Past Medical History PAST MEDICAL HISTORY: CKF, DM, HTN, Denies Surgical History: Unknown 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 Family History Family History: Unknown Social History Smoker: Non-Smoker Alcohol: Denies ETOH Use Drugs: Denies Drug Use Lives In: Home Constitutional: denies: chills, diaphoresis, fatigue, fever, malaise, sweats, weakness, others EENTM: denies: blurred vision, double vision, ear bleeding, ear discharge, ear drainage, ear pain, ear ringing, eye pain, eye redness, hearing loss, mouth pain, mouth swelling, nasal discharge, nose bleeding, nose congestion, nose pain, photophobia, tearing, throat pain, throat swelling, voice changes, others Respiratory: denies: cough, hemoptysis, orthopnea, SOB at rest, shortness of breath, SOB with excertion, stridor, wheezing, others Cardiovascular: denies: chest pain, dizzy spells, diaphoresis, Dyspnea on exertion, edema, irregular heart beat, left arm pain, lightheadedness, palp itations, PND, syncope, others Gastrointestinal: denies: abdomen distended, abdominal pain, blood streaked bowels, constipated, diarrhea, dysphagia, difficulty swallowing, hematemesis, melena, nausea, poor appetite, poor fluid intake, rectal bleeding, rectal pain, vomiting, others Genitourinary: denies: abnormal vagina bleeding, burning, dyspareunia, dysuria, flank pain, frequency, hematuria, incontinence, pain, , vagina discharge, urgency, others Neurological: denies: dizziness, fainting, headache, left sided numbness, left sided weakness, numbness, paresthesia, pre-existing deficit, right sided numbness, right sided weakness, seizure, speech problems, tingling, tremors, weakness, others Musculoskeletal: denies: back pain, gout, joint pain, joint swelling, muscle pain, muscle stiffness, neck pain, others Integumetry: denies: bruises, change in color, change in hair/nails, dryness, laceration, lesions, lumps, rash, wounds, others Allergic/Immunocompromised: denies: Difficulty Healing, Frequent Infections, Hives, Itching, others Hematologic/Lymphatic: denies: anemia, blood clots, easy bleeding, easy br uising, swollen glands, others Endocrine: denies: excessive hunger, excessive sweating, excessive thirst, excessive urination, flushing, intolerance to cold, intolerance to heat, unexplained weight gain, unexplained weight loss, others Psychiatric: denies: anxiety, bipolar disorder, depression, hopeless, panic disorder, schizophrenia, sleepless, suicidal, others Unable to Obtain due to: Altered Mental Status Physical Exam General Appearance: Moderate Distress HEENT: Normal ENT Inspection, Pharynx Normal, TMs Normal Neck: Full Range of Motion, Non-Tender, Normal, Normal Inspection Respiratory: Chest Non-Tender, Lungs Clear, No Accessory Muscle Use, No Respiratory Distress, Normal Breath Sounds Cardiovascular: No Edema, No JVD, No Murmur, No Gallop, Normal Peripheral Pulses, Regular Rate/Rhythm Breast Exam: Deferred Gastrointestinal: No Organomegaly, Non Tender, No Pulsatile Mass, Normal Bowel Sounds, Soft Genitalia: Deferred Pelvic: Deferred Rectal: Deferred Extremities: No calf tenderness, Normal capillary refill, Normal inspection, Normal range of motion, Non-tender, No pedal edema Musculoskeletal : Apperance: Normal Neurologic: Alert Cerebellar Function: NOT DONE Reflexes: NOT DONE Skin: Dry, Normal Color, Warm Peripheral Pulses: 3+ Radial (R), 3+ Radial (L) Lymphatic: No Adenopathy EKG EKG : Pulse Rate (adult): 101 [place]: Normal Cardiac Rhythm: ST Block: None Hypertrophy: LVH ST: Normal Was a procedure done? Was a procedure done?: No Differential Diagnosis (ALOC) Differential Diagnosis: Dehydration, Sepsis, Other (UTI) X-Ray, Labs, Meds, VS Vital Signs Date Time Temp Pulse Resp B/P (MAP) Pulse Ox O2 Delivery O2 Flow Rate FiO2 11/20/24 07:00 101 11/20/24 06:48 101 11/20/24 06:43 98.2 105 18 178/65 (102) 96 98.2 11/20/24 06:43 105 18 97 Nasal Cannula* 2 28 11/20/24 05:55 98.8 98 14 160/89 (112) 100 11/20/24 05:53 123 Lab Test 11/20/24 07:47 11/20/24 06:23 Range/Units Lactic Acid Level Pending 2.1 *H 0.4-2.0 mmol/L Troponin I High Sensitivity Pending 8 </=34 ng/L White Blood Count 10.1 4.4-10.8 10^3/uL Red Blood Count 4.55 4.0-5.20 10^6/uL Hemoglobin 14.2 12.2-16.2 g/dL Hematocrit 43.6 36.0-46.0 % Mean Corpuscular Volume 95.8 80.0-100.0 fL Mean Corpuscular Hemoglobin 31.2 28.0-32.0 pg Mean Corpuscular Hemoglobin Concent 32.6 32.0-36.0 g/dL Red Cell Distribution Width 15.1 H 11.8-14.3 % Platelet Count 273 140-450 10^3/uL Mean Platelet Volume 7.8 6.9-10.8 fL Neutrophils (%) (Auto) 86.6 H 37.0-80.0 % Lymphocytes (%) (Auto) 8.0 L 10.0-50.0 % Monocytes (%) (Auto) 4.5 0.0-12.0 % Eosinophils (%) (Auto) 0.5 0.0-7.0 % Basophils (%) (Auto) 0.4 0.0-2.0 % Neutrophils # (Auto) 8.7 H 1.6-8.6 10 ^3/uL Lymphocytes # (Auto) 0.8 0.4-5.4 10 ^3/uL Monocytes # (Auto) 0.4 0-1.3 10 ^3/uL Eosinophils # (Auto) 0 0-0.8 10 ^3/uL Basophils # (Auto) 0 0-0.2 10 ^3/uL Nucleated Red Blood Cells 0.0 % Sodium Level 140 136-145 mmol/L Potassium Level 4.5 3.5-5.1 mmol/L Chloride Level 108 H 98-107 mmol/L Carbon Dioxide Level 23 20-31 mmol/L Anion Gap 9 5-15 Blood Urea Nitrogen 37 H 9-23 mg/dL Creatinine 1.41 H 0.550-1.02 mg/dL Glomerular Filtration Rate Calc 39 >90 mL/min BUN/Creatinine Ratio 26.2 H 10.0-20.0 Serum Glucose 175 H 74-106 mg/dL Calcium Level 10.1 8.7-10.4 mg/dL Total Bilirubin 0.4 0.2-1.0 mg/dL Aspartate Amino Transferase (AST) 14 13-40 U/L Alanine Aminotransferase (ALT) 18 7-40 U/L Alkaline Phosphatase 93 46-116 U/L B-Type Natriuretic Peptide 26.35 0-100 pg/mL Total Protein 6.3 5.7-8.2 g/dL Albumin 4.8 3.2-4.8 g/dL Current Medications Medications (Trade) Dose Ordered Sig/Earl Route Start Time Stop Time Status Last Admin Sodium Chloride 1,000 ml @ 1,000 mls/hr Q1H ONCE IV 11/20/24 06:15 11/20/24 07:14 DC 11/20/24 06:30 Ondansetron HCl (Zofran) 4 mg ONCE ONCE IV 11/20/24 06:15 11/20/24 06:28 DC 11/20/24 08:02 [place] [id number] Ph: [phone] DIAGNOSTIC IMAGING Diagnostic Imaging Report : [id number] Signed PATIENT: AJ MTZ ACCT: [id number] UNIT: [id number] : 1945 LOC: ER ROOM / BED: / AGE / SEX: 78 / F ADM STATUS: REG ER SERVICE 0556 ORDERING PHYSICIAN: MYRNA VALDERRAMA MD PROCEDURE(s): CTH - STROKE CTH REASON: R/O STROKE ORDER NUMBER(s): [id number], ACCESSION NUMBER(s): [id number] EXAM: CT Head Without Intravenous Contrast CLINICAL INDICATION: R/O STROKE TECHNIQUE: Axial computed tomography images of the head/brain without intravenous contrast. This CT exam was performed using one or more of the following dose reduction techniques: automated exposure control, adjustment of the mA and/or kV according to patient size, and/or use of iterative kari nstruction technique. RADIATION DOSE: CTDlvol= 53.9 mGy, DLP= 973.79 mGy-cm COMPARISON: None FINDINGS: BRAIN AND EXTRA-AXIAL SPACES: Unremarkable. No hemorrhage. No significant white matter disease. No edema. No ventriculomegaly. BONES/JOINTS: Unremarkable. No acute fracture. SOFT TISSUES: Unremarkable. SINUSES: Unremarkable as visualized. No acute sinusitis. MASTOID AIR CELLS: Unremarkable as visualized. No mastoid effusion. OTHER FINDINGS: . . IMPRESSION: No acute intracranial hemorrhage, midline shift or mass effect. Findings were discussed with Dr. Valderrama on 11/12/2024 at 6:14 a.m. ATED BY: HUGO ROWLEY MD DICTATED DATE/TIME: 11/20/24616 SIGNED BY: HUGO ROWLEY MD SIGNED DATE/TIME: 11/20/24616 CC: [place] [address] Ph: [phone] DIAGNOSTIC IMAGING Diagnostic Imaging Report : [id number] Signed PATIENT: AJ MTZ ACCT: [id number] UNIT: [id number] : 1945 LOC: ER ROOM / BED: / AGE / SEX: 78 / F ADM STATUS: REG ER SERVICE 7 ORDERING PHYSICIAN: MYRNA VALDERRAMA MD PROCEDURE(s): CXRP - CHEST PORTABLE REASON: ams ORDER NUMBER(s): [id number], ACCESSION NUMBER(s): [id number] CHEST RADIOGRAPH Indication: ams Technique: Single frontal view of the chest was obtained Comparison: None FINDINGS: Lines and Tubes: None Lungs: No focal consolidation. Pleura: No effusion. No pneumothorax. Cardiomediastinal contours: Unremarkable Bones: No acute osseous abnormality. IMPRESSION: No acute cardiopulmonary disease. ATED BY: BAM PIERRE MD DICTATED DATE/TIME: 11/20/24809 SIGNED BY: BAM PIERRE MD SIGNED DATE/TIME: 11/20/24809 CC: Patient alert. Answering most questions. Possibly she fell. Vitals stable. Moving all extremities. Blood sugar elevated. Lactic acid elevated. Possibly ATN. Establish intravenous access. Was given fluids. WBC within normal limits. Tachycardia. Blood pressure elevated. Was given labetalol. Reviewed her history. Explained to the patient. Continue cardiac monitoring. EKG shows LVH. CT of the head reviewed does not show any acute changes. Time of 1ST Reevaluation: 07:00 Reevaluation 1ST: Unchanged Patient Education/Counseling: Diagnosis, Treatment Family Education/Counseling: No Family Present Departure 1 Departure Time of Disposition: 07:53 Impression: Primary Impression: Uncontrolled diabetes mellitus Qualified Codes: E13.65 - Other specified diabetes mellitus with hyperg lycemia Additional Impressions: Acute tubular necrosis Lactic acidosis Hypertensive urgency Disposition: ADMITTED INPATIENT Admit to: Med Surg Condition: Guarded Critical Care Note Critical Care Time?: Yes (90 min-critical care time only) Stability Stability form required: No Heart Score Heart Score: Heart Score Response (Comments) Value History Slightly Suspicious 0 EKG Normal 0 Age >65 2 Risk Factors >3 or Hx ASHD 2 Troponin Normal limit 0 Total 4 I personally scribed for VINNIE MAYA MD ([email or web address]) on 11/20/24 at 06:23. Electronically submitted by Dasha Gonzalez ([email or web address]). I personally scribed for VINNIE MAYA MD ([email or web address]) on 11/20/24 at 07:00. Electronically submitted by Dasha Gonzalez (Freezing PointSCole Martin). I personally scribed for VINNIE MAYA MD ([email or web address]) on 11/20/24 at 07:00. Electronically submitted by Dasha Gonzalez ([email or web address]). I personally scribed for VINNIE MAYA MD ([email or web address]) on 11/20/24 at 08:25. Electronically submitted by Dasha Gonzalez ([email or web address]). I personally scribed for VINNIE MAYA MD ([email or web address]) on 11/20/24 at 08:26. Electronically submitted by Dasha Gonzalez ([email or web address]). VINNIE MAYA MD Nov 20, 2024 06:23
[2024-11-20] MEDS: SODIUM CHLORIDE 0.9% 1,000 ML IV ONE ×3 (06:30→09:17)
[2024-11-20 06:43] VITALS: PULSE 105; RESP 18; O2SAT 97
[2024-11-20 07:02] LABS: Basophils # (auto) 0 10 ^3/uL (0-0.2); Basophils % (auto) 0.4 % (0.0-2.0); Eosinophils # (auto) 0 10 ^3/uL (0-0.8); Eosinophils % (auto) 0.5 % (0.0-7.0); Hematocrit 43.6 % (36.0-46.0); Hemoglobin 14.2 g/dL (12.2-16.2); Lymphocytes # (auto) 0.8 10 ^3/uL (0.4-5.4); Mean Corpuscular Hemoglobin 31.2 pg (28.0-32.0); Mean Corpuscular Hgb Conc. 32.6 g/dL (32.0-36.0); Mean Corpuscular Volume 95.8 fL (80.0-100.0); Monocytes # (auto) 0.4 10 ^3/uL (0-1.3); Monocytes % (auto) 4.5 % (0.0-12.0); Neutrophils # (auto) 8.7 10 ^3/uL (1.6-8.6); Neutrophils % (auto) 86.6 % (37.0-80.0); Platelet Count (auto) 273 10^3/uL (140-450); Red Blood Cells 4.55 10^6/uL (4.0-5.20); Red Cell Distribution Width 15.1 % (11.8-14.3); White Blood Cell 10.1 10^3/uL (4.4-10.8)
--- NOTE | 2024-11-20 07:03 | ECG ---
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
--- NOTE | 2024-11-20 07:03 | ECG ---
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
[2024-11-20 07:16] LABS: Alanine Aminotransferase 18 U/L (7-40); Albumin 4.8 g/dL (3.2-4.8); Alkaline Phosphatase 93 U/L (46-116); Anion Gap 9 (5-15); Aspartate Aminotransferase 14 U/L (13-40); BUN/Creatinine Ratio 26.2 (10.0-20.0); Calcium 10.1 mg/dL (8.7-10.4); Carbon Dioxide 23 mmol/L (20-31); Potassium 4.5 mmol/L (3.5-5.1); Sodium 140 mmol/L (136-145)
[2024-11-20 07:17] LABS: Bilirubin, Total 0.4 mg/dL (0.2-1.0); Blood Urea Nitrogen 37 mg/dL (9-23); Chloride 108 mmol/L (98-107); Glucose 175 mg/dL (74-106); Total Protein 6.3 g/dL (5.7-8.2)
[2024-11-20 07:20] LABS: Lactic Acid w/Reflex 2.1 mmol/L (0.4-2.0)
[2024-11-20 07:55] VITALS: PULSE 98; RESP 21; O2SAT 96
[2024-11-20] MEDS: ONDANSETRON HCL 4 MG/2 ML VIAL IV ONE ×2 (08:02→10:30)
--- NOTE | 2024-11-20 08:13 | DVH ---
CHEST RADIOGRAPH Indication: ams Technique: Single frontal view of the chest was obtained Comparison: None FINDINGS: Lines and Tubes: None Lungs: No focal consolidation. Pleura: No effusion. No pneumothorax. Cardiomediastinal contours: Unremarkable Bones: No acute osseous abnormality. IMPRESSION: No acute cardiopulmonary disease.
[2024-11-20 09:13] LABS: Urine Bacteria None Seen /hpf (None Seen)
[2024-11-20] MEDS: LABETALOL HCL 20 MG/4 ML VL IV ONE (09:14)
[2024-11-20 09:41] LABS: Urine Blood Negative /uL (Negative); Urine Clarity Clear (Clear); Urine Color Light-Yellow (Yellow); Urine Protein, UAD TRACE (Negative); Urine Specific Gravity 1.014 (1.001-1.035); Urine Squamous Epithelial Cell FEW /hpf (<5); Urine Urobilinogen Normal (Negative); Urine WBC < 1 /HPF (0-5)
[2024-11-20 09:45] LABS: Opiate Scree,Urine Pos (NEGATIVE)
[2024-11-20 09:49] LABS: Barbiturate Scree,Urine Neg (NEGATIVE); Cocaine Screen, Urine Neg (NEGATIVE); Phencyclidine Screen, Urine Neg (NEGATIVE)
[2024-11-20 09:50] LABS: Amphetamine Screen, Urine Neg (NEGATIVE); Benzodiazephine Screen, Urine Neg (NEGATIVE); Cannabinoid Screen, Urine Neg (NEGATIVE)
[2024-11-20] MEDS ORDERED: DEXTROSE (50%) 50ML SYRG IV PRN (10:45)
[2024-11-20] MEDS: SODIUM CHLORIDE 0.9% 1,000 ML IV SCH (10:45)
[2024-11-20] MEDS ORDERED: FLUT50SP NAS (10:53)
[2024-11-20] MEDS ORDERED: PREG100C66 PO (10:53)
[2024-11-20] MEDS ORDERED: TACR1CAP4 PO (10:53)
[2024-11-20] MEDS ORDERED: ATOR20TA50 PO (10:53)
[2024-11-20] MEDS ORDERED: PREG75CA90 PO (10:53)
[2024-11-20] MEDS ORDERED: HYDR-4072 PO (10:53)
--- NOTE | 2024-11-20 11:08 | DVHHP2 ---
History of Present Illness Reason for Visit: Weakness History of Present Illness Lynn Vega is a 78-year-old female with past medical history of chronic back pain, hypertension, diabetes, CKD, right kidney transplant at [facility] 2-1/2 years ago, multiple myeloma, and skin cancer who presents to the ED for nausea, vomiting, headache, and lower extremity weakness x1 day. Patient reports that this morning she was walking in her bedroom when her legs suddenly became weak she fell and hit the back of her head on her heater and then somehow ended up on the bathroom floor. She reports that someone called EMS and she is here for evaluation. Patient also reports that she had a biopsy and skin removed on her left upper chest due to skin cancer. She reports that she was taking clindamycin and finished her course yesterday. Patient also reports that she has a i&c tech at [facility] and a pain management physician at [facility] for her chronic back pain. Patient denies any recent sick contacts recent illnesses. Patient denies any chest pain, shortness of breath, diarrhea, abdomi nal pain, fever, chills, lightheadedness, and dizziness. Upon examination patient has multiple bruising things on her bilateral upper extremities and bilateral extremities. Cardiovascular: HTN Renal/: Chronic renal insuff Endocrine: Diabetes Past Medical History Chronic back pain Multiple myeloma Past Surgical History: Other (History of dialysis catheter Skin cancer removal left upper chest Right kidney transplant at [facility] 2 and half years ago) Family History: CVA, Other (Dad with ND and mom with CVA) Smoke: No ALCOHOL: none Drugs: None Lives: with Family Domestic Violence: Neg Review of Systems Constitutional: Yes: Weakness, Other (Headache); No: Fever, Chills, Sweats, Malaise Eyes: No: Pain, Vision change, Conjunctivae inflammation, Eyelid inflammation, Other, Redness ENT: No: Ear pain, Ear discharge, Nose pain, Nose discharge, Nose congestion, Mouth pain, Mouth swelling, Throat pain, Throat swelling, Other Respiratory: No: Cough, Dry, Shortness of breath, SOB with excertion, Wheezing, Hemoptysis, Pleuritic Pain, Sputum, Wheezing, Other Cardiovascular: No: Chest Pain, Palpitations, Orthopnea, Paroxysmal Noc. Dyspnea, Edema, Lt Headedness, Other Gastrointestinal: Nausea, Vomiting; No: Abdominal Pain, Diarrhea, Constipation, Melena, Hematochezia, Other Genitourinary: No Dysuria, No Frequency, No Incontinence, No Hematuria, No Retention, No Other Musculoskeletal: No: other, neck pain, shoulder pain, arm pain, back pain, hand pain, leg pain, foot pain Skin: No: Rash, Lesions, Jaundice, Bruising, Other Neurological: No: Weakness, Numbness, Incoordination, Change in speech, Confusion, Seizures, Other Allergies: Coded Allergies: Levofloxacin (Verified Allergy, Unknown, 11/20/24) Patiromer (Verified Allergy, Unknown, 11/20/24) Penicillins (Verified Allergy, Unknown, 11/20/24) Sulfa Antibiotics (Verified Allergy, Unknown, 11/20/24) Exam Vital Signs Vital Signs Date Time Temp Pulse Resp B/P (MAP) Pulse Ox O2 Delivery O2 Flow Rate FiO2 11/20/24 09:14 104 110/47 11/20/24 07:55 97.8 21 96 97.8 11/20/24 07:55 Nasal Cannula* 2 28 General Appearance: Alert, Oriented X3, Cooperative, No acute distress HEENT: Atraumatic, PERRLA, EOMI, Mucous membr. moist/pink Respiratory: Clear to auscultation, Normal air movement Cardiovascular: Normal S1, Normal S2, No murmurs Abdominal: Normal bowel sounds, Soft, No tenderness, No hepatospenomegaly, No masses Extremities: No clubbing, No cyanosis, No edema, Normal pulses, No tenderness/swelling Neuro: Normal speech, Normal tone, Sensation intact Psych/Mental Status: Mental status NL, Mood NL Labs/Xrays Labs Test 11/20/24 08:58 11/20/24 07:47 11/20/24 06:23 Range/Units Urine Color Light-yellow Yellow Urine Clarity Clear Clear Urine pH 6.0 5.0-9.0 Urine Specific [place] 1.014 1.001-1.035 Urine Protein Trace H Negative Urine Ketones Negative Negative Urine Blood Negative Negative /uL Urine Nitrite Negative Negative Urine Bilirubin Negative Negative Urine Urobilinogen Normal Negative mg/dL Urine Leukocyte Esterase Negative Negative /uL Urine RBC <1 0 - 4 /hpf Urine Microscopic WBC < 1 0-5 /HPF Urine Squamous Epithelial Cells Few <5 /hpf Urine Bacteria None seen None Seen /hpf Urine Glucose Normal Normal mg/dL Urine Opiates Screen Pos NEGATIVE Urine Fentanyl Screen Neg NEGATIVE Urine Barbiturates Screen Neg NEGATIVE Urine Phencyclidine Screen Neg NEGATIVE Urine Amphetamines Screen Neg NEGATIVE Urine Benzodiazepines Screen Neg NEGATIVE Urine Cocaine Screen Neg NEGATIVE Urine Cannabinoids Screen Neg NEGATIVE Lactic Acid Level 2.8 *H 0.4-2.0 mmol/L Troponin I High Sensitivity 14 </=34 ng/L White Blood Count 10.1 4.4-10.8 10^3/uL Red Blood Count 4.55 4.0-5.20 10^6/uL Hemoglobin 14.2 12.2-16.2 g/dL Hematocrit 43.6 36.0-46.0 % Mean Corpuscular Volume 95.8 80.0-100.0 fL Mean Corpuscular Hemoglobin 31.2 28.0-32.0 pg Mean Corpuscular Hemoglobin Concent 32.6 32.0-36.0 g/dL Red Cell Distribution Width 15.1 H 11.8-14.3 % Platelet Count 273 140-450 10^3/uL Mean Platelet Volume 7.8 6.9-10.8 fL Neutrophils (%) (Auto) 86.6 H 37.0-80.0 % Lymphocytes (%) (Auto) 8.0 L 10.0-50.0 % Monocytes (%) (Auto) 4.5 0.0-12.0 % Eosinophils (%) (Auto) 0.5 0.0-7.0 % Basophils (%) (Auto) 0.4 0.0-2.0 % Neutrophils # (Auto) 8.7 H 1.6-8.6 10 ^3/uL Lymphocytes # (Auto) 0.8 0.4-5.4 10 ^3/uL Monocytes # (Auto) 0.4 0-1.3 10 ^3/uL Eosinophils # (Auto) 0 0-0.8 10 ^3/uL Basophils # (Auto) 0 0-0.2 10 ^3/uL Nucleated Red Blood Cells 0.0 % Sodium Level 140 136-145 mmol/L Potassium Level 4.5 3.5-5.1 mmol/L Chloride Level 108 H 98-107 mmol/L Carbon Dioxide Level 23 20-31 mmol/L Anion Gap 9 5-15 Blood Urea Nitrogen 37 H 9-23 mg/dL Creatinine 1.41 H 0.550-1.02 mg/dL Glomerular Filtration Rate Calc 39 >90 mL/min BUN/Creatinine Ratio 26.2 H 10.0-20.0 Serum Glucose 175 H 74-106 mg/dL Calcium Level 10.1 8.7-10.4 mg/dL Total Bilirubin 0.4 0.2-1.0 mg/dL Aspartate Amino Transferase (AST) 14 13-40 U/L Alanine Aminotransferase (ALT) 18 7-40 U/L Alkaline Phosphatase 93 46-116 U/L B-Type Natriuretic Peptide 26.35 0-100 pg/mL Total Protein 6.3 5.7-8.2 g/dL Albumin 4.8 3.2-4.8 g/dL CHEST RADIOGRAPH Indication: ams Technique: Single frontal view of the chest was obtained Comparison: None FINDINGS: Lines and Tubes: None Lungs: No focal consolidation. Pleura: No effusion. No pneumothorax. Cardiomediastinal contours: Unremarkable Bones: No acute osseous abnormality. IMPRESSION: No acute cardiopulmonary disease. EXAM: CT Head Without Intravenous Contrast CLINICAL INDICATION: R/O STROKE TECHNIQUE: Axial computed tomography images of the head/brain without intravenous contrast. This CT exam was performed using one or more of the following dose reduction techniques: automated exposure control, adjustment of the mA and/or kV according to patient size, and/or use of iterative reconstruction technique. RADIATION DOSE: CTDlvol= 53.9 mGy, DLP= 973.79 mGy-cm COMPARISON: None FINDINGS: BRAIN AND EXTRA-AXIAL SPACES: Unremarkable. No hemorrhage. No significant white matter disease. No edema. No ventriculomegaly. BONES/JOINTS: Unremarkable. No acute fracture. SOFT TISSUES: Unremarkable. SINUSES: Unremarkable as visualized. No acute sinusitis. MASTOID AIR CELLS: Unremarkable as visualized. No mastoid effusion. OTHER FINDINGS: . . IMPRESSION: No acute intracranial hemorrhage, midline shift or mass effect. Assessment/Plan Assessment/Plan Assessment/Plan: Weakness Acute encephalopathy Lactic acidosis ASIA Labs UA EKG CT head noted Troponin negative x2 Lactic UDS Chest x-ray noted IV antibiotics-ceftriaxone + macrobid IV fluids A.m. labs Antiemetics Pain management Nephrology consult Diabetes type 2 uncontrolled Hemoglobin A1c ISS and Accu-Cheks Chronic hypertension Continue home medications Chronic myeloma Continue home medications History of right kidney transplant Continue home medications Chronic back pain Continue home medications FEN/PPX Diet IV fluids PUD ppx -continue home medication, protonix DVT ppx - SCDs Discussed plan of care with nurse Admit to [facility] Home medications reconciled Plan discussed with: Patient My Orders Orders - DIRK SCHRADER Procedure Category Date Status Time Hemoglobin A1c LAB 11/20/24 Logged 10:42 Glucose Blood PHA 11/20/24 In Process (Accu-Chek Comfort 11:30 Insulin R (Human) PHA 11/20/24 In Process (Insulin R) 11:30 Dextrose 50% Syringe PHA 11/20/24 In Process 10:45 Sodium Chloride 0.9% PHA 11/20/24 In Process 10:45 Ceftriaxone 1gm/50ml PHA 11/21/24 Logged D5w (Rocephin) 09:00 Ceftriaxone 1gm/50ml PHA 11/20/24 Logged D5w (Rocephin) 10:45 Admit ADMIT 11/20/24 Transmitted 10:42 Allergies FRANCIS 11/20/24 In Process 10:42 Code Status CODE 11/20/24 Transmitted 10:42 Renal DIET 11/20/24 Transmitted Standard(2gna,3gk,Lopho) Lunch Ondansetron Hcl PHA 11/20/24 In Process (Zofran) 10:45 Complete Blood Count LAB 11/21/24 Verified 04:00 Comprehensive LAB 11/21/24 Verified Metabolic Panel 04:00 Acetaminophen Tablet PHA 11/20/24 In Process (Tylenol Tablet) 10:45 *Dr. [facility] CONS 11/20/24 Transmitted -[place] 10:53 Wound Culture W/ Gs JOEL 11/20/24 Verified 10:54 Date of Service: Nov 20, 2024 Billing Provider: DIRK SCHRADER Common Visit Codes: [id number] INP/OBS CARE (HIGH) DIRK SCHRADER Nov 20, 2024 11:08
[2024-11-20] MEDS: MORPHINE SULFATE INJ 2 MG/ml SYRG IV ONE (11:26)
[2024-11-20] MEDS: cefTRIAXone 1GM/50ML D5W 50 ML IV ONE (11:43)
[2024-11-20] MEDS: InsuLIN REG 1unit/0.01ml Soln (100units/ml) SC SCH (11:55)
[2024-11-20] MEDS: ACCU-CHEK COMFORT CURVE STRIP VI SCH (11:55)
[2024-11-20] MEDS: HYDROcodone-ACET 10/325MG TAB PO PRN (15:26)
[2024-11-20] MEDS ORDERED: HYDROcodone-ACET 10/325MG TAB PO PRN (15:30)
[2024-11-20 19:40] VITALS: PULSE 89; RESP 16; O2SAT 96
[2024-11-20] MEDS: ACETAMINOPHEN 325 MG TAB PO PRN (20:12)
[2024-11-20] MEDS: NITROFURANTOIN 100 mg CAP PO SCH (22:00)
[2024-11-20] MEDS: PREGABALIN CAPSULE 75 MG CAP PO SCH (22:14)
[2024-11-20] MEDS: TACROLIMUS 1 MG CAP PO SCH (22:14)
[2024-11-20] MEDS: PREGABALIN 25 MG CAP PO SCH (22:15)
[2024-11-20] MEDS: SODIUM BICARBONATE 650 MG TAB PO SCH (22:17)
[2024-11-20] MEDS: ONDANSETRON HCL 4 MG/2 ML VIAL IV PRN (22:34)
[2024-11-20 22:52] VITALS: BP 161/77; PULSE 92; RESP 17; RESP 18; O2SAT 95; O2SAT 96
[2024-11-20] MEDS ORDERED: NIFE1TAB31 PO (23:57)
[2024-11-20] MEDS ORDERED: ASPI-543 PO (23:58)
[2024-11-21] VITALS (7 sets, daily range): BP systolic 145–170; BP diastolic 48–83; PULSE 81–94; RESP 16–20; TEMP 97.9–98.7; O2SAT 97–100
[2024-11-21] MEDS ORDERED: POLY335015 PO (00:04)
[2024-11-21] MEDS ORDERED: DEXA4TAB PO (00:04)
[2024-11-21] MEDS ORDERED: INSUINJ37 SC (00:07)
[2024-11-21] MEDS ORDERED: ALBU108A5 IN (00:14)
[2024-11-21] MEDS ORDERED: ACET120S38 PR (00:14)
[2024-11-21] MEDS ORDERED: DICL1GEL73 (00:14)
[2024-11-21] MEDS ORDERED: DARA1SOL2 SC (00:14)
[2024-11-21] MEDS ORDERED: ASCO1CHW PO (00:16)
[2024-11-21] MEDS ORDERED: CRAN1000 PO (00:16)
[2024-11-21] MEDS ORDERED: INSU100I52 IJ (00:21)
[2024-11-21] MEDS ORDERED: IPRAAER6 IN (00:21)
[2024-11-21 07:51] LABS: Basophils # (auto) 0 10 ^3/uL (0-0.2); Basophils % (auto) 0.3 % (0.0-2.0); Eosinophils # (auto) 0.1 10 ^3/uL (0-0.8); Eosinophils % (auto) 0.6 % (0.0-7.0); Hematocrit 38.4 % (36.0-46.0); Hemoglobin 12.6 g/dL (12.2-16.2); Lymphocytes # (auto) 0.8 10 ^3/uL (0.4-5.4); Lymphocytes % (auto) 7.5 % (10.0-50.0); Mean Corpuscular Hgb Conc. 32.8 g/dL (32.0-36.0); Mean Corpuscular Volume 97.6 fL (80.0-100.0); Monocytes # (auto) 0.6 10 ^3/uL (0-1.3); Monocytes % (auto) 5.1 % (0.0-12.0); Neutrophils # (auto) 9.4 10 ^3/uL (1.6-8.6); Neutrophils % (auto) 86.5 % (37.0-80.0); Platelet Count (auto) 281 10^3/uL (140-450); Red Blood Cells 3.94 10^6/uL (4.0-5.20); Red Cell Distribution Width 15.2 % (11.8-14.3); White Blood Cell 10.9 10^3/uL (4.4-10.8)
[2024-11-21 07:56] LABS: Alanine Aminotransferase 11 U/L (7-40); Albumin 4.1 g/dL (3.2-4.8); Alkaline Phosphatase 74 U/L (46-116); Anion Gap 9 (5-15); BUN/Creatinine Ratio 18.3 (10.0-20.0); Blood Urea Nitrogen 21 mg/dL (9-23); Calcium 9.2 mg/dL (8.7-10.4); Potassium 4.3 mmol/L (3.5-5.1); Sodium 137 mmol/L (136-145)
[2024-11-21 07:57] LABS: Bilirubin, Total 0.6 mg/dL (0.2-1.0)
[2024-11-21 08:02] LABS: Aspartate Aminotransferase 10 U/L (13-40); Carbon Dioxide 17 mmol/L (20-31); Chloride 111 mmol/L (98-107); Glucose 214 mg/dL (74-106); Total Protein 5.7 g/dL (5.7-8.2)
[2024-11-21] MEDS: PANTOPRAZOLE 40 MG TAB PO SCH (09:22)
[2024-11-21] MEDS ORDERED: TACROLIMUS 1 MG CAP PO SCH (10:00)
[2024-11-21] MEDS: cefTRIAXone 1GM/50ML D5W 50 ML IV SCH (10:07)
[2024-11-21] MEDS: predniSONE 5 MG TAB PO SCH (11:01)
[2024-11-21] MEDS: ATORVASTATIN 20 MG TAB PO SCH (11:01)
[2024-11-21] MEDS: LOSARTAN POTASSIUM 25 MG TAB PO SCH (11:02)
[2024-11-21] MEDS: FLUTICASONE PROP NASAL SPR 0.05 % (50MCG) 16GM EACHNOSTRI SCH (11:25)
--- NOTE | 2024-11-21 13:07 | DVHINCON2 ---
Date of service: Nov 21, 2024 Reason for Consultation ASIA History of Present Illness 78-year-old female past medical history of end-stage renal disease on hemodialysis previously. Due to diabetes hypertension. She is status post donor renal transplant in 2019 at [place]. Patient reports atilio alvarado did not have mediated graft function. She was status post diagnosed with multiple myeloma started on chemotherapy. She reports that she has had frequent hospitalizations due to urinary tract infection. She presents to the hospital complaining of weakness. She was admitted with a diagnosis of urinary tract patient had this time. Per her history transplant she is currently not on CellCept . She takes tacrolimus and prednisone. 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 Past Medical History Diabetes Hypertension Multiple myeloma on chemotherapy Allergies: Coded Allergies: Iodine (Verified Allergy, Unknown, 11/21/24) Levofloxacin (Verified Allergy, Unknown, 11/20/24) Patiromer (Verified Allergy, Unknown, 11/20/24) Penicillins (Verified Allergy, Unknown, 11/20/24) Sulfa Antibiotics (Verified Allergy, Unknown, 11/20/24) Home Meds Reported Medications Insulin Lispro (Insulin Lispro) 100 Unit/Ml Inj, 100 UNIT IJ QID, INJ 11/21/24 Ipratropium-Albuterol (COMBIVENT RESPIMAT) Respimat Aer, 1 IN, AER 11/21/24 Ascorbic Acid (Vitamin C 250 mg) 1 Chw Chw, 1 CHW PO DAILY, TAB.CHEW 11/21/24 Cranberry (Cranberry Juice Extract) 1,000 Mg Cap, 1000 MG PO DAILY, CAP 11/21/24 Methenamine Hippurate (Hiprex) 1 Gm Tab, 1 GM PO BID, TAB 11/21/24 Mewzqfcfwkg-Agkujwkbojkyy-Gttg (Darzalex Faspro [id number] mg-Ut/15Ml) 1 Carlos Carlos, 1 CARLOS SC, ML 11/21/24 Diclofenac Sodium (Topical) (Diclofenac Sodium) 1 % Gel, 2 GM PRN, GEL 11/21/24 Hydrocodone-Acetaminophen (Hydrocodone Bitartrate/AC 10-325 mg) 1 Tab Tab, 1 TAB PO Q6HR PRN for PAIN SCALE 7 THRU 10 for 22 Days, #90 11/21/24 Acetaminophen (Acetaminophen) 120 Mg Sup, 50 MG IA PRN, MG 0 Refills 11/21/24 Albuterol Sulfate (Albuterol Sulfate Hfa) 108 Mcg/Act Aer, 90 MCG IN PRN, AER 11/21/24 Insulin Glargine (Lantus Solostar) 100 Unit/Ml Inj, 35 UNIT SC DAILY 11/21/24 Dexamethasone (Dexamethasone) 4 Mg Tab, 40 MG PO, MG 11/21/24 Polyethylene Glycol 3350 (Miralax) 17 Gm Pow, 17 GM PO PRN, POW 11/21/24 Zinc Sulfate (Zinc Sulfate) 220 Mg Cap, 50 MG PO DAILY for 30 Days, MG 11/21/24 Multiple Vitamin (Multivitamins) Tab, 1 TAB PO DAILY, #90 TAB 3 Refills 11/21/24 Docusate Sodium (Colace) 100 Mg Cap, 1 CAP PO BID, #30 CAP 11/20/24 Aspirin (Aspir-Low) 81 Mg Tab, 81 MG PO DAILY for 30 Days, MG 11/20/24 Nifedipine (Nifedipine Er) 30 Mg Tab, 1 TAB PO PRN, #90 TAB 1 Refill 11/20/24 Pregabalin (Pregabalin) 75 Mg Cap, 1 CAP PO BID 11/20/24 Fluticasone Propionate (Nasal) (Fluticasone Propionate) 50 Mcg/Act Spr, 2 SPRAY YAA DAILY 11/20/24 Atorvastatin Calcium (ATORVASTATIN CALCIUM) 20 Mg Tab, 1 TAB PO HS 11/20/24 Losartan Potassium (Losartan Potassium) 25 Mg Tab, 1 TAB PO DAILY for 30 Days, #30 11/20/24 Pantoprazole Sodium Sesquihydr (Pantoprazole Sodium) 40 Mg Tab, 1 TAB PO DAILY for 60 Days, #60 11/20/24 Sodium Bicarbonate (Sodium Bicarbonate) 650 Mg Tab, 1 TAB PO BID 11/20/24 Prednisone (Prednisone) 5 Mg Tab, 1 TAB PO DAILY for 90 Days, #90 11/20/24 Tacrolimus (Tacrolimus) 1 Mg Cap, 2 MG PO BID 11/20/24 Discontinued Reported Medications Hydrocodone-Acetaminophen (Hydrocodone/Acetaminophen 10-325 mg) 1 Tab Tab, 10 MG PO Q6HP PRN 11/20/24 Pregabalin (Pregabalin) 100 Mg Cap, 1 CAP PO BID 11/20/24 Current Medications Current Medications Medications (Trade) Dose Ordered Sig/Earl Route PRN Reason Start Time Stop Time Status Last Admin Ceftriaxone Sodium 50 ml @ 100 mls/hr DAILY@09 IV 11/21/24 09:00 11/21/24 10:07 Nitrofurantoin Macrocrystals (Macrobid) 100 mg BID PO 11/20/24 22:00 11/21/24 10:00 Atorvastatin Calcium (Lipitor) 20 mg DAILY PO 11/21/24 10:00 11/21/24 11:01 Fluticasone Propionate (Flonase Nebo) 100 mcg DAILY EACHNOSTRI 11/21/24 10:00 11/21/24 11:25 Losartan Potassium (Cozaar Tablet) 25 mg DAILY PO 11/21/24 10:00 11/21/24 11:02 Pantoprazole Sodium (Protonix Tablet) 40 mg DAILY PO 11/21/24 10:00 11/21/24 09:22 Prednisone 5 mg DAILY PO 11/21/24 10:00 11/21/24 11:01 Tacrolimus (Prograf) 1 mg DAILY PO 11/21/24 10:00 11/20/24 17:08 DC Pregabalin (Lyrica Capsule) 75 mg BID PO 11/20/24 22:00 11/21/24 11:01 Sodium Bicarbonate 650 mg BID PO 11/20/24 22:00 11/21/24 11:01 Pregabalin (Lyrica Capsule) 25 mg BID PO 11/20/24 22:00 11/21/24 11:01 Tacrolimus (Prograf) 2 mg BID PO 11/20/24 22:00 11/21/24 09:19 Nifedipine (Procardia Xl (Time-Release)) 30 mg DAILY PO 11/22/24 10:00 Insulin Glargine (Lantus) 35 units QAM SC 11/22/24 07:00 Clonidine HCl (Catapres Tablet) 0.1 mg Q6HP PRN PO SBP>160 11/21/24 16:15 H&P Exam Vital Signs/I&O Vital Sign Date Time Temp Pulse Resp B/P (MAP) Pulse Ox O2 Delivery O2 Flow Rate FiO2 11/21/24 16:42 97.9 81 18 145/76 (99) 97 97.9 11/21/24 08:08 Room Air* 0 21 Intake and Output 11/20/24 11/21/24 19:00 07:00 Intake Total 1725 ml 250 ml Balance 1725 ml 250 ml Intake Oral 250 ml IV Total 1725 ml # Voids 2 Physical Exam Elderly white female Nonacute distress Abdomen soft Left chest wall erythema raised area of bruising abdomen is soft No pain Labs/Diagnostic Data Labs/Diagnostic Data Laboratory Tests Test 11/21/24 11:28 11/21/24 07:12 11/21/24 06:22 11/20/24 22:21 Range/Units POC Glucose 277 H 213 H 161 H 70-106 mg/dl White Blood Count 10.9 H 4.4-10.8 10^3/uL Red Blood Count 3.94 L 4.0-5.20 10^6/uL Hemoglobin 12.6 12.2-16.2 g/dL Hematocrit 38.4 # 36.0-46.0 % Mean Corpuscular Volume 97.6 80.0-100.0 fL Mean Corpuscular Hemoglobin 32.0 28.0-32.0 pg Mean Corpuscular Hemoglobin Concent 32.8 32.0-36.0 g/dL Red Cell Distribution Width 15.2 H 11.8-14.3 % Platelet Count 281 140-450 10^3/uL Mean Platelet Volume 7.8 6.9-10.8 fL Neutrophils (%) (Auto) 86.5 H 37.0-80.0 % Lymphocytes (%) (Auto) 7.5 L 10.0-50.0 % Monocytes (%) (Auto) 5.1 0.0-12.0 % Eosinophils (%) (Auto) 0.6 0.0-7.0 % Basophils (%) (Auto) 0.3 0.0-2.0 % Neutrophils # (Auto) 9.4 H 1.6-8.6 10 ^3/uL Lymphocytes # (Auto) 0.8 0.4-5.4 10 ^3/uL Monocytes # (Auto) 0.6 0-1.3 10 ^3/uL Eosinophils # (Auto) 0.1 0-0.8 10 ^3/uL Basophils # (Auto) 0 0-0.2 10 ^3/uL Nucleated Red Blood Cells 0.0 % Sodium Level 137 136-145 mmol/L Potassium Level 4.3 3.5-5.1 mmol/L Chloride Level 111 H 98-107 mmol/L Carbon Dioxide Level 17 L 20-31 mmol/L Anion Gap 9 5-15 Blood Urea Nitrogen 21 # 9-23 mg/dL Creatinine 1.15 H 0.550-1.02 mg/dL Glomerular Filtration Rate Calc 49 >90 mL/min BUN/Creatinine Ratio 18.3 10.0-20.0 Serum Glucose 214 H 74-106 mg/dL Calcium Level 9.2 8.7-10.4 mg/dL Total Bilirubin 0.6 0.2-1.0 mg/dL Aspartate Amino Transferase (AST) 10 L 13-40 U/L Alanine Aminotransferase (ALT) 11 7-40 U/L Alkaline Phosphatase 74 46-116 U/L Total Protein 5.7 5.7-8.2 g/dL Albumin 4.1 3.2-4.8 g/dL Test 11/20/24 17:26 11/20/24 11:47 11/20/24 10:30 11/20/24 08:58 Range/Units POC Glucose 189 H 176 H 70-106 mg/dl Troponin I High Sensitivity 17 </=34 ng/L Urine Color Light-yellow Yellow Urine Clarity Clear Clear Urine pH 6.0 5.0-9.0 Urine Specific [place] 1.014 1.001-1.035 Urine Protein Trace H Negative Urine Ketones Negative Negative Urine Blood Negative Negative /uL Urine Nitrite Negative Negative Urine Bilirubin Negative Negative Urine Urobilinogen Normal Negative mg/dL Urine Leukocyte Esterase Negative Negative /uL Urine RBC <1 0 - 4 /hpf Urine Microscopic WBC < 1 0-5 /HPF Urine Squamous Epithelial Cells Few <5 /hpf Urine Bacteria None seen None Seen /hpf Urine Glucose Normal Normal mg/dL Urine Opiates Screen Pos NEGATIVE Urine Fentanyl Screen Neg NEGATIVE Urine Barbiturates Screen Neg NEGATIVE Urine Phencyclidine Screen Neg NEGATIVE Urine Amphetamines Screen Neg NEGATIVE Urine Benzodiazepines Screen Neg NEGATIVE Urine Cocaine Screen Neg NEGATIVE Urine Cannabinoids Screen Neg NEGATIVE Test 11/20/24 07:47 11/20/24 06:23 Range/Units Lactic Acid Level 2.8 *H 2.1 *H 0.4-2.0 mmol/L Troponin I High Sensitivity 14 8 </=34 ng/L White Blood Count 10.1 4.4-10.8 10^3/uL Red Blood Count 4.55 4.0-5.20 10^6/uL Hemoglobin 14.2 12.2-16.2 g/dL Hematocrit 43.6 36.0-46.0 % Mean Corpuscular Volume 95.8 80.0-100.0 fL Mean Corpuscular Hemoglobin 31.2 28.0-32.0 pg Mean Corpuscular Hemoglobin Concent 32.6 32.0-36.0 g/dL Red Cell Distribution Width 15.1 H 11.8-14.3 % Platelet Count 273 140-450 10^3/uL Mean Platelet Volume 7.8 6.9-10.8 fL Neutrophils (%) (Auto) 86.6 H 37.0-80.0 % Lymphocytes (%) (Auto) 8.0 L 10.0-50.0 % Monocytes (%) (Auto) 4.5 0.0-12.0 % Eosinophils (%) (Auto) 0.5 0.0-7.0 % Basophils (%) (Auto) 0.4 0.0-2.0 % Neutrophils # (Auto) 8.7 H 1.6-8.6 10 ^3/uL Lymphocytes # (Auto) 0.8 0.4-5.4 10 ^3/uL Monocytes # (Auto) 0.4 0-1.3 10 ^3/uL Eosinophils # (Auto) 0 0-0.8 10 ^3/uL Basophils # (Auto) 0 0-0.2 10 ^3/uL Nucleated Red Blood Cells 0.0 % Sodium Level 140 136-145 mmol/L Potassium Level 4.5 3.5-5.1 mmol/L Chloride Level 108 H 98-107 mmol/L Carbon Dioxide Level 23 20-31 mmol/L Anion Gap 9 5-15 Blood Urea Nitrogen 37 H 9-23 mg/dL Creatinine 1.41 H 0.550-1.02 mg/dL Glomerular Filtration Rate Calc 39 >90 mL/min BUN/Creatinine Ratio 26.2 H 10.0-20.0 Serum Glucose 175 H 74-106 mg/dL Hemoglobin A1c 7.9 H <5.7 % A1C Calcium Level 10.1 8.7-10.4 mg/dL Total Bilirubin 0.4 0.2-1.0 mg/dL Aspartate Amino Transferase (AST) 14 13-40 U/L Alanine Aminotransferase (ALT) 18 7-40 U/L Alkaline Phosphatase 93 46-116 U/L B-Type Natriuretic Peptide 26.35 0-100 pg/mL Total Protein 6.3 5.7-8.2 g/dL Albumin 4.8 3.2-4.8 g/dL Assessment Acute kidney injury Previously End-stage renal disease status post donor transplant donor renal transplant Sepsis Metabolic acidosis Lactic acidosis Urinary tract infection MM on chemotherapy presently In the absence of septic shock recommend continue immunosuppression no on cellcept as per oncology at [place] Progr Prednisone IV fluid hydration IV antibiotics Cultures Plan discussed with: Patient TUAN LEONARD MD Nov 21, 2024 13:07
--- NOTE | 2024-11-21 13:39 | DVHPN2 ---
Reviewed: Care Plan, H&P, Labs, Medications, Previous Orders, Radiology Changes from previous H/P or p: No Changes Eyes: No Pain, No Vision change, No Conjunctivae inflammation, No Eyelid inflammation, No Other, No Redness ENT: No Ear pain, No Ear discharge, No Nose pain, No Nose discharge, No Nose congestion, No Mouth pain, No Mouth swelling, No Throat pain, No Throat swelling, No Other Cardiovascular: No Chest Pain, No Palpitations, No Orthopnea, No Paroxysmal Noc. Dyspnea, No Edema, No Lt Headedness, No Other Respiratory: No Cough, No Dry, No Shortness of breath, No SOB with excertion, No Wheezing, No Hemoptysis, No Pleuritic Pain, No Sputum, No Other Gastrointestinal: Nausea, Vomiting; No Abdominal Pain, No Diarrhea, No Constipation, No Melena, No Hematochezia, No Other Genitourinary: No Dysuria, No Frequency, No Incontinence, No Hematuria, No Retention, No Other Musculoskeletal: No other, No neck pain, No shoulder pain, No arm pain, No back pain, No hand pain, No leg pain, No foot pain Skin: No Rash, No Lesions, No Jaundice, No Bruising, No Other Objective Vitals Vital Signs Date Time Temp Pulse Resp B/P (MAP) Pulse Ox O2 Delivery O2 Flow Rate FiO2 11/21/24 13:00 98.0 86 16 165/76 (105) 99 98.0 11/20/24 22:52 Room Air* 0 21 Intake/Output Intake and Output 11/21/24 07:00 Intake Total 1975 ml Balance 1975 ml Intake Oral 250 ml IV Total 1725 ml # Voids 2 Medications Current Medications Medications Dose Ordered Sig/Earl Route Start Time Stop Time Status Last Admin Dose Admin Diagnostic Test (Pha) 1 strip ACHS 11/20/24 11:30 11/21/24 11:30 1 STRIP Insulin Human Regular ACHS SC 11/20/24 11:30 11/21/24 12:03 6 UNITS Dextrose 50 ml UD PRN IV 11/20/24 10:45 Sodium Chloride 1,000 ml @ 75 mls/hr [id number] IV 11/20/24 10:45 11/21/24 11:06 75 MLS/HR Ceftriaxone Sodium 50 ml @ 100 mls/hr DAILY@09 IV 11/21/24 09:00 11/21/24 10:07 100 MLS/HR Ondansetron HCl 4 mg Q4HP PRN IV 11/20/24 10:45 11/21/24 12:04 4 MG Acetaminophen 650 mg Q6HP PRN PO 11/20/24 10:45 11/20/24 20:12 650 MG Nitrofurantoin Macrocrystals 100 mg BID PO 11/20/24 22:00 11/21/24 10:00 100 MG Acetaminophen/ Hydrocodone Bitart 1 tab Q6HP PRN PO 11/20/24 15:30 11/21/24 12:47 1 TAB Atorvastatin Calcium 20 mg DAILY PO 11/21/24 10:00 11/21/24 11:01 20 MG Fluticasone Propionate 100 mcg DAILY EACHNOSTRI 11/21/24 10:00 11/21/24 11:25 100 MCG Losartan Potassium 25 mg DAILY PO 11/21/24 10:00 11/21/24 11:02 25 MG Pantoprazole Sodium 40 mg DAILY PO 11/21/24 10:00 11/21/24 09:22 40 MG Prednisone 5 mg DAILY PO 11/21/24 10:00 11/21/24 11:01 5 MG Pregabalin 75 mg BID PO 11/20/24 22:00 11/21/24 11:01 75 MG Sodium Bicarbonate 650 mg BID PO 11/20/24 22:00 11/21/24 11:01 650 MG Pregabalin 25 mg BID PO 11/20/24 22:00 11/21/24 11:01 25 MG Tacrolimus 2 mg BID PO 11/20/24 22:00 11/21/24 09:19 2 MG Laboratory Results Laboratory Tests 11/21/24 07:12 Chemistry Test 11/21/24 07:12 Albumin 4.1 g/dL (3.2-4.8) Calcium Level 9.2 mg/dL (8.7-10.4) Total Protein 5.7 g/dL (5.7-8.2) LFT Test 11/21/24 07:12 Alanine Aminotransferase (ALT) 11 U/L (7-40) Alkaline Phosphatase 74 U/L (46-116) Aspartate Amino Transferase (AST) 10 U/L (13-40) L Total Bilirubin 0.6 mg/dL (0.2-1.0) Urinalysis Test 11/20/24 08:58 Urine Color Light-yellow (Yellow) Urine Clarity Clear (Clear) Urine pH 6.0 (5.0-9.0) Urine Specific [place] 1.014 (1.001-1.035) Urine Protein Trace (Negative) H Urine Ketones Negative (Negative) Urine Blood Negative /uL (Negative) Urine Nitrite Negative (Negative) Urine Bilirubin Negative (Negative) Urine Urobilinogen Normal mg/dL (Negative) Urine Leukocyte Esterase Negative /uL (Negative) Urine RBC <1 /hpf (0 - 4) Urine Microscopic WBC < 1 /HPF (0-5) Urine Squamous Epithelial Cells Few /hpf (<5) Urine Bacteria None seen /hpf (None Seen) Urine Glucose Normal mg/dL (Normal) Microbiology Microbiology Date/Time Source Procedure Growth Status 11/20/24 16:28 Chest Gram Stain - Final Resulted 11/20/24 16:28 Chest Wound Culture - Preliminary Resulted Labs and/or images reviewed: Labs reviewed by me, Image(s) reviewed by me Assessment/Plan Assessment/Plan Acute kidney injury donor renal transplant Sepsis : Rocephin Metabolic acidosis Lactic acidosis Diabetes Hypertension History of multiple myeloma Right kidney transplant recipient Time spent 65 minutes Condition guarded Advanced care planning time 20 minutes Plan discussed with: Patient Date of Service: Nov 21, 2024 Billing Provider: ISAEL LICEA MD Common Visit Codes: [id number] CARE 30-74 MIN ISAEL LICEA MD Nov 21, 2024 13:39
[2024-11-21] MEDS: NIFEdipine ER 30 MG TAB PO ONE (14:12)
[2024-11-21] MEDS: cloNIDine HCL 0.1 MG TAB PO PRN (23:08)
[2024-11-22] VITALS (8 sets, daily range): BP systolic 119–166; BP diastolic 33–57; PULSE 63–92; RESP 15–20; TEMP 98–99; O2SAT 95–100
[2024-11-22] MEDS: INSULIN LANTUS (GLARGINE) 1 /0.01ml (100units/ml) SC SCH (05:46)
[2024-11-22] MEDS: NIFEdipine ER 30 MG TAB PO SCH (11:06)
--- NOTE | 2024-11-22 11:23 | DVHPN2 ---
Reviewed: Care Plan, H&P, Labs, Medications, Previous Orders, Radiology Changes from previous H/P or p: No Changes Eyes: No Pain, No Vision change, No Conjunctivae inflammation, No Eyelid inflammation, No Other, No Redness ENT: No Ear pain, No Ear discharge, No Nose pain, No Nose discharge, No Nose congestion, No Mouth pain, No Mouth swelling, No Throat pain, No Throat swelling, No Other Cardiovascular: No Chest Pain, No Palpitations, No Orthopnea, No Paroxysmal Noc. Dyspnea, No Edema, No Lt Headedness, No Other Respiratory: No Cough, No Dry, No Shortness of breath, No SOB with excertion, No Wheezing, No Hemoptysis, No Pleuritic Pain, No Sputum, No Other Gastrointestinal: Nausea, Vomiting; No Abdominal Pain, No Diarrhea, No Constipation, No Melena, No Hematochezia, No Other Genitourinary: No Dysuria, No Frequency, No Incontinence, No Hematuria, No Retention, No Other Musculoskeletal: No other, No neck pain, No shoulder pain, No arm pain, No back pain, No hand pain, No leg pain, No foot pain Skin: No Rash, No Lesions, No Jaundice, No Bruising, No Other Objective Vitals Vital Signs Date Time Temp Pulse Resp B/P (MAP) Pulse Ox O2 Delivery O2 Flow Rate FiO2 11/22/24 11:06 139/55 11/22/24 09:00 99.0 82 16 98 99.0 11/22/24 08:17 Room Air* 0 21 Intake/Output Intake and Output 11/22/24 07:00 Intake Total 2250 ml Balance 2250 ml Intake Oral 1600 ml IV Total 650 ml # Voids 7 Medications Current Medications Medications Dose Ordered Sig/Earl Route Start Time Stop Time Status Last Admin Dose Admin Diagnostic Test (Pha) 1 strip ACHS 11/20/24 11:30 11/22/24 05:45 1 STRIP Insulin Human Regular ACHS SC 11/20/24 11:30 11/22/24 05:45 3 UNITS Dextrose 50 ml UD PRN IV 11/20/24 10:45 Sodium Chloride 1,000 ml @ 75 mls/hr [id number] IV 11/20/24 10:45 11/21/24 11:06 75 MLS/HR Ceftriaxone Sodium 50 ml @ 100 mls/hr DAILY@09 IV 11/21/24 09:00 11/22/24 09:50 100 MLS/HR Ondansetron HCl 4 mg Q4HP PRN IV 11/20/24 10:45 11/21/24 17:33 4 MG Acetaminophen 650 mg Q6HP PRN PO 11/20/24 10:45 11/20/24 20:12 650 MG Nitrofurantoin Macrocrystals 100 mg BID PO 11/20/24 22:00 11/22/24 11:05 100 MG Acetaminophen/ Hydrocodone Bitart 1 tab Q6HP PRN PO 11/20/24 15:30 11/22/24 09:44 1 TAB Atorvastatin Calcium 20 mg DAILY PO 11/21/24 10:00 11/22/24 11:05 20 MG Fluticasone Propionate 100 mcg DAILY EACHNOSTRI 11/21/24 10:00 11/22/24 11:00 100 MCG Losartan Potassium 25 mg DAILY PO 11/21/24 10:00 11/22/24 11:05 25 MG Pantoprazole Sodium 40 mg DAILY PO 11/21/24 10:00 11/22/24 09:50 40 MG Prednisone 5 mg DAILY PO 11/21/24 10:00 11/22/24 11:04 5 MG Pregabalin 75 mg BID PO 11/20/24 22:00 11/21/24 23:07 75 MG Sodium Bicarbonate 650 mg BID PO 11/20/24 22:00 11/22/24 11:04 650 MG Pregabalin 25 mg BID PO 11/20/24 22:00 11/22/24 11:05 25 MG Tacrolimus 2 mg BID PO 11/20/24 22:00 11/22/24 09:50 2 MG Nifedipine 30 mg DAILY PO 11/22/24 10:00 11/22/24 11:06 30 MG Insulin Glargine 35 units QAM SC 11/22/24 07:00 11/22/24 05:46 35 UNITS Clonidine HCl 0.1 mg Q6HP PRN PO 11/21/24 16:15 11/21/24 23:08 0.1 MG Laboratory Results Laboratory Tests 11/21/24 07:12 Urinalysis Test 11/20/24 08:58 Urine Color Light-yellow (Yellow) Urine Clarity Clear (Clear) Urine pH 6.0 (5.0-9.0) Urine Specific [place] 1.014 (1.001-1.035) Urine Protein Trace (Negative) H Urine Ketones Negative (Negative) Urine Blood Negative /uL (Negative) Urine Nitrite Negative (Negative) Urine Bilirubin Negative (Negative) Urine Urobilinogen Normal mg/dL (Negative) Urine Leukocyte Esterase Negative /uL (Negative) Urine RBC <1 /hpf (0 - 4) Urine Microscopic WBC < 1 /HPF (0-5) Urine Squamous Epithelial Cells Few /hpf (<5) Urine Bacteria None seen /hpf (None Seen) Urine Glucose Normal mg/dL (Normal) Microbiology Microbiology Date/Time Source Procedure Growth Status 11/21/24 18:36 Voided Urine Urine Culture - Preliminary Resulted 11/20/24 16:28 Chest Gram Stain - Final Resulted 11/20/24 16:28 Chest Wound Culture - Preliminary Resulted Labs and/or images reviewed: Labs reviewed by me, Image(s) reviewed by me Assessment/Plan Assessment/Plan Acute kidney injury donor renal transplant Sepsis secondary to urinary tract infection: Rocephin Metabolic acidosis Lactic acidosis Diabetes Hypertension History of multiple myeloma Left upper chest wall infection Right kidney transplant recipient Wound cultures negative Urine cultures negative Blood cultures pending Time spent 55 minutes Patient took clindamycin p.o. for 14 days as outpatient without benefit Plan discussed with: Patient My Orders Orders - ISAEL LICEA MD Procedure Category Date Status Time Blood Culture JOEL 11/21/24 In Process 13:39 Urine Bacterial JOEL 11/21/24 In Process Culture 13:39 Nifedipine Er PHA 11/22/24 In Process (Procardia Xl 10:00 Insulin Lantus PHA 11/22/24 In Process (Glargine) (Lantus) 07:00 Clonidine Hcl Tablet PHA 11/21/24 In Process (Catapres Tablet) 16:15 Date of Service: Nov 22, 2024 Billing Provider: ISAEL LICEA MD Common Visit Codes: [id number] INP/OBS CARE(HIGH) ISAEL LICEA MD Nov 22, 2024 11:23
--- NOTE | 2024-11-22 14:26 | DVHPN2 ---
Progress Note Date Seen: Nov 22, 2024 Medical Necessity Reason Pt with a Central, PICC or Fol: No Subjective Patient reports: Feels better Objective vital signs Vital Sign Date Time Temp Pulse Resp B/P (MAP) Pulse Ox O2 Delivery O2 Flow Rate FiO2 11/22/24 11:06 139/55 11/22/24 09:00 99.0 82 16 98 99.0 11/22/24 08:17 Room Air* 0 21 Total Intake and Output 11/21/24 11/21/24 11/22/24 15:00 23:00 07:00 Intake Total 50 ml 1400 ml 800 ml Balance 50 ml 1400 ml 800 ml medications Current Medications Medications Dose Ordered Sig/Earl Route Start Time Stop Time Status Last Admin Dose Admin Diagnostic Test (Pha) 1 strip ACHS 11/20/24 11:30 11/22/24 12:08 1 STRIP Insulin Human Regular ACHS SC 11/20/24 11:30 11/22/24 12:09 3 UNITS Dextrose 50 ml UD PRN IV 11/20/24 10:45 Sodium Chloride 1,000 ml @ 75 mls/hr [id number] IV 11/20/24 10:45 11/21/24 11:06 75 MLS/HR Ceftriaxone Sodium 50 ml @ 100 mls/hr DAILY@09 IV 11/21/24 09:00 11/22/24 09:50 100 MLS/HR Ondansetron HCl 4 mg Q4HP PRN IV 11/20/24 10:45 11/21/24 17:33 4 MG Acetaminophen 650 mg Q6HP PRN PO 11/20/24 10:45 11/20/24 20:12 650 MG Nitrofurantoin Macrocrystals 100 mg BID PO 11/20/24 22:00 11/22/24 11:05 100 MG Acetaminophen/ Hydrocodone Bitart 1 tab Q6HP PRN PO 11/20/24 15:30 11/22/24 09:44 1 TAB Atorvastatin Calcium 20 mg DAILY PO 11/21/24 10:00 11/22/24 11:05 20 MG Fluticasone Propionate 100 mcg DAILY EACHNOSTRI 11/21/24 10:00 11/22/24 11:00 100 MCG Losartan Potassium 25 mg DAILY PO 11/21/24 10:00 11/22/24 11:05 25 MG Pantoprazole Sodium 40 mg DAILY PO 11/21/24 10:00 11/22/24 09:50 40 MG Prednisone 5 mg DAILY PO 11/21/24 10:00 11/22/24 11:04 5 MG Pregabalin 75 mg BID PO 11/20/24 22:00 11/22/24 11:22 75 MG Sodium Bicarbonate 650 mg BID PO 11/20/24 22:00 11/22/24 11:04 650 MG Pregabalin 25 mg BID PO 11/20/24 22:00 11/22/24 11:05 25 MG Tacrolimus 2 mg BID PO 11/20/24 22:00 11/22/24 09:50 2 MG Nifedipine 30 mg DAILY PO 11/22/24 10:00 11/22/24 11:06 30 MG Insulin Glargine 35 units QAM SC 11/22/24 07:00 11/22/24 05:46 35 UNITS Clonidine HCl 0.1 mg Q6HP PRN PO 11/21/24 16:15 11/21/24 23:08 0.1 MG Examination: GENERAL:Normal, CVS:Normal, ABDOMEN:Normal laboratory and microbiology Laboratory Tests 11/21/24 07:12 Test 11/21/24 07:12 Range/Units Serum Glucose 214 H 74-106 mg/dL Microbiology Date/Time Source Procedure Growth Status 11/21/24 18:36 Voided Urine Urine Culture - Preliminary Resulted 11/20/24 16:28 Chest Gram Stain - Final Resulted 11/20/24 16:28 Chest Wound Culture - Preliminary Resulted Problem List/Assessment/Plan Problem List/Assessment/Plan Acute kidney injury Previously End-stage renal disease status post donor transplant donor renal transplant Sepsis Metabolic acidosis Lactic acidosis Urinary tract infection MM on chemotherapy presently In the absence of septic shock recommend continue immunosuppression no on cellcept as per oncology at [place] Progr Prednisone IV fluid hydration repeat labs IV antibiotics Cultures Plan discussed with: Patient TUAN LEONARD MD Nov 22, 2024 14:26
[2024-11-22 15:18] LABS: Potassium 4.5 mmol/L (3.5-5.1); Sodium 138 mmol/L (136-145)
[2024-11-22 15:19] LABS: Anion Gap 7 (5-15); Calcium 10.2 mg/dL (8.7-10.4); Carbon Dioxide 21 mmol/L (20-31)
[2024-11-22 15:24] LABS: BUN/Creatinine Ratio 13.4 (10.0-20.0); Blood Urea Nitrogen 16 mg/dL (9-23)
[2024-11-22 15:33] LABS: Chloride 110 mmol/L (98-107); Glucose 196 mg/dL (74-106)
[2024-11-23 01:00] VITALS: BP 132/60; PULSE 72; RESP 18; TEMP 98.1; O2SAT 95
[2024-11-23 05:00] VITALS: BP 110/59; PULSE 70; RESP 20; TEMP 98.1; O2SAT 98
[2024-11-23 06:14] LABS: Potassium 3.9 mmol/L (3.5-5.1); Sodium 143 mmol/L (136-145)
[2024-11-23 06:15] LABS: Anion Gap 10 (5-15); Carbon Dioxide 21 mmol/L (20-31)
[2024-11-23 06:20] LABS: BUN/Creatinine Ratio 15.5 (10.0-20.0); Blood Urea Nitrogen 17 mg/dL (9-23); Glucose 103 mg/dL (74-106)
[2024-11-23 06:24] LABS: Calcium 10.4 mg/dL (8.7-10.4); Chloride 112 mmol/L (98-107)
[2024-11-23 08:11] VITALS: RESP 20; O2SAT 100
[2024-11-23 09:00] VITALS: BP 138/54; PULSE 74; RESP 14; TEMP 98.2; O2SAT 94
--- NOTE | 2024-11-23 12:22 | DVHPN2 ---
Reviewed: Care Plan, H&P, Labs, Medications, Previous Orders, Radiology Changes from previous H/P or p: No Changes Eyes: No Pain, No Vision change, No Conjunctivae inflammation, No Eyelid inflammation, No Other, No Redness ENT: No Ear pain, No Ear discharge, No Nose pain, No Nose discharge, No Nose congestion, No Mouth pain, No Mouth swelling, No Throat pain, No Throat swelling, No Other Cardiovascular: No Chest Pain, No Palpitations, No Orthopnea, No Paroxysmal Noc. Dyspnea, No Edema, No Lt Headedness, No Other Respiratory: No Cough, No Dry, No Shortness of breath, No SOB with excertion, No Wheezing, No Hemoptysis, No Pleuritic Pain, No Sputum, No Other Gastrointestinal: Nausea, Vomiting; No Abdominal Pain, No Diarrhea, No Constipation, No Melena, No Hematochezia, No Other Genitourinary: No Dysuria, No Frequency, No Incontinence, No Hematuria, No Retention, No Other Musculoskeletal: No other, No neck pain, No shoulder pain, No arm pain, No back pain, No hand pain, No leg pain, No foot pain Skin: No Rash, No Lesions, No Jaundice, No Bruising, No Other Objective Vitals Vital Signs Date Time Temp Pulse Resp B/P (MAP) Pulse Ox O2 Delivery O2 Flow Rate FiO2 11/23/24 10:32 135/84 11/23/24 09:00 98.2 74 14 94 98.2 11/23/24 08:11 Room Air* 0 21 Intake/Output Intake and Output 11/23/24 07:00 Intake Total 1490 ml Output Total 400 ml Balance 1090 ml Intake Oral 1490 ml Output Urine Total 400 ml # Voids 6 # Bowel Movements 1 Medications Current Medications Medications Dose Ordered Sig/Earl Route Start Time Stop Time Status Last Admin Dose Admin Diagnostic Test (Pha) 1 strip ACHS 11/20/24 11:30 11/23/24 07:06 1 STRIP Insulin Human Regular ACHS SC 11/20/24 11:30 11/23/24 00:13 4 UNITS Dextrose 50 ml UD PRN IV 11/20/24 10:45 Sodium Chloride 1,000 ml @ 75 mls/hr [id number] IV 11/20/24 10:45 11/23/24 07:08 75 MLS/HR Ceftriaxone Sodium 50 ml @ 100 mls/hr DAILY@09 IV 11/21/24 09:00 11/23/24 08:37 100 MLS/HR Ondansetron HCl 4 mg Q4HP PRN IV 11/20/24 10:45 11/21/24 17:33 4 MG Acetaminophen 650 mg Q6HP PRN PO 11/20/24 10:45 11/20/24 20:12 650 MG Nitrofurantoin Macrocrystals 100 mg BID PO 11/20/24 22:00 11/23/24 10:31 100 MG Acetaminophen/ Hydrocodone Bitart 1 tab Q6HP PRN PO 11/20/24 15:30 11/23/24 08:22 1 TAB Fluticasone Propionate 100 mcg DAILY EACHNOSTRI 11/21/24 10:00 11/23/24 09:42 100 MCG Losartan Potassium 25 mg DAILY PO 11/21/24 10:00 11/23/24 10:31 25 MG Pantoprazole Sodium 40 mg DAILY PO 11/21/24 10:00 11/23/24 10:32 40 MG Prednisone 5 mg DAILY PO 11/21/24 10:00 11/23/24 10:31 5 MG Pregabalin 75 mg BID PO 11/20/24 22:00 11/23/24 10:45 75 MG Sodium Bicarbonate 650 mg BID PO 11/20/24 22:00 11/23/24 10:31 650 MG Pregabalin 25 mg BID PO 11/20/24 22:00 11/23/24 10:31 25 MG Tacrolimus 2 mg BID PO 11/20/24 22:00 11/23/24 09:43 2 MG Nifedipine 30 mg DAILY PO 11/22/24 10:00 11/23/24 10:32 30 MG Insulin Glargine 35 units QAM SC 11/22/24 07:00 11/23/24 07:07 35 UNITS Clonidine HCl 0.1 mg Q6HP PRN PO 11/21/24 16:15 11/21/24 23:08 0.1 MG Atorvastatin Calcium 20 mg HS PO 11/23/24 22:00 Laboratory Results Laboratory Tests 11/21/24 07:12 11/23/24 05:22 Chemistry Test 11/22/24 14:50 11/23/24 05:22 Calcium Level 10.2 mg/dL (8.7-10.4) 10.4 mg/dL (8.7-10.4) Urinalysis Test 11/20/24 08:58 Urine Color Light-yellow (Yellow) Urine Clarity Clear (Clear) Urine pH 6.0 (5.0-9.0) Urine Specific [place] 1.014 (1.001-1.035) Urine Protein Trace (Negative) H Urine Ketones Negative (Negative) Urine Blood Negative /uL (Negative) Urine Nitrite Negative (Negative) Urine Bilirubin Negative (Negative) Urine Urobilinogen Normal mg/dL (Negative) Urine Leukocyte Esterase Negative /uL (Negative) Urine RBC <1 /hpf (0 - 4) Urine Microscopic WBC < 1 /HPF (0-5) Urine Squamous Epithelial Cells Few /hpf (<5) Urine Bacteria None seen /hpf (None Seen) Urine Glucose Normal mg/dL (Normal) Microbiology Microbiology Date/Time Source Procedure Growth Status 11/21/24 18:36 Voided Urine Urine Culture - Final Complete 11/21/24 16:22 Blood Blood Culture - Preliminary NO GROWTH AFTER 24 HOURS OF INCUBATION. Resulted 11/20/24 16:28 Chest Gram Stain - Final Resulted 11/20/24 16:28 Chest Wound Culture - Preliminary Resulted Labs and/or images reviewed: Labs reviewed by me, Image(s) reviewed by me Assessment/Plan Assessment/Plan Acute kidney injury donor renal transplant Sepsis secondary to urinary tract infection: Rocephin Metabolic acidosis Lactic acidosis Diabetes Hypertension History of multiple myeloma Left upper chest wall infection Right kidney transplant recipient Wound cultures negative Urine cultures negative Blood cultures negative Time spent 55 minutes Patient took clindamycin p.o. for 14 days as outpatient without benefit Plan discussed with: Patient My Orders Orders - ISAEL LICEA MD Procedure Category Date Status Time Atorvastatin (Lipitor) PHA 11/23/24 In Process 22:00 Date of Service: Nov 23, 2024 Billing Provider: ISAEL LICEA MD Common Visit Codes: [id number] INP/OBS CARE(HIGH) ISAEL LICEA MD Nov 23, 2024 12:22
[2024-11-23] MEDS ORDERED: DOXY100C79 PO (12:24)
--- NOTE | 2024-11-23 12:28 | DVHDS2 ---
Discharge Summary Date of Admission Nov 20, 2024 at 10:42 Date of Discharge: Nov 23, 2024 Admitting Diagnosis Generalized weakness Wounds: None Labs/Diagnostic Data: Laboratory Results Test 11/23/24 05:49 11/23/24 05:22 11/21/24 07:12 11/20/24 10:30 POC Glucose 103 mg/dl (70-106) Sodium Level 143 mmol/L (136-145) Potassium Level 3.9 mmol/L (3.5-5.1) Chloride Level 112 mmol/L (98-107) Carbon Dioxide Level 21 mmol/L (20-31) Anion Gap 10 (5-15) Blood Urea Nitrogen 17 mg/dL (9-23) Creatinine 1.10 mg/dL (0.550-1.02) Glomerular Filtration Rate Calc 52 mL/min (>90) BUN/Creatinine Ratio 15.5 (10.0-20.0) Serum Glucose 103 mg/dL (74-106) Calcium Level 10.4 mg/dL (8.7-10.4) White Blood Count 10.9 10^3/uL (4.4-10.8) Red Blood Count 3.94 10^6/uL (4.0-5.20) Hemoglobin 12.6 g/dL (12.2-16.2) Hematocrit 38.4 % (36.0-46.0) Mean Corpuscular Volume 97.6 fL (80.0-100.0) Mean Corpuscular Hemoglobin 32.0 pg (28.0-32.0) Mean Corpuscular Hemoglobin Concent 32.8 g/dL (32.0-36.0) Red Cell Distribution Width 15.2 % (11.8-14.3) Platelet Count 281 10^3/uL (140-450) Mean Platelet Volume 7.8 fL (6.9-10.8) Neutrophils (%) (Auto) 86.5 % (37.0-80.0) Lymphocytes (%) (Auto) 7.5 % (10.0-50.0) Monocytes (%) (Auto) 5.1 % (0.0-12.0) Eosinophils (%) (Auto) 0.6 % (0.0-7.0) Basophils (%) (Auto) 0.3 % (0.0-2.0) Neutrophils # (Auto) 9.4 10 ^3/uL (1.6-8.6) Lymphocytes # (Auto) 0.8 10 ^3/uL (0.4-5.4) Monocytes # (Auto) 0.6 10 ^3/uL (0-1.3) Eosinophils # (Auto) 0.1 10 ^3/uL (0-0.8) Basophils # (Auto) 0 10 ^3/uL (0-0.2) Nucleated Red Blood Cells 0.0 % Total Bilirubin 0.6 mg/dL (0.2-1.0) Aspartate Amino Transferase (AST) 10 U/L (13-40) Alanine Aminotransferase (ALT) 11 U/L (7-40) Alkaline Phosphatase 74 U/L (46-116) Total Protein 5.7 g/dL (5.7-8.2) Albumin 4.1 g/dL (3.2-4.8) Troponin I High Sensitivity 17 ng/L (</=34) Test 11/20/24 08:58 11/20/24 07:47 11/20/24 06:23 Urine Color Light-yellow (Yellow) Urine Clarity Clear (Clear) Urine pH 6.0 (5.0-9.0) Urine Specific [place] 1.014 (1.001-1.035) Urine Protein Trace (Negative) Urine Ketones Negative (Negative) Urine Blood Negative /uL (Negative) Urine Nitrite Negative (Negative) Urine Bilirubin Negative (Negative) Urine Urobilinogen Normal mg/dL (Negative) Urine Leukocyte Esterase Negative /uL (Negative) Urine RBC <1 /hpf (0 - 4) Urine Microscopic WBC < 1 /HPF (0-5) Urine Squamous Epithelial Cells Few /hpf (<5) Urine Bacteria None seen /hpf (None Seen) Urine Glucose Normal mg/dL (Normal) Urine Opiates Screen Pos (NEGATIVE) Urine Fentanyl Screen Neg (NEGATIVE) Urine Barbiturates Screen Neg (NEGATIVE) Urine Phencyclidine Screen Neg (NEGATIVE) Urine Amphetamines Screen Neg (NEGATIVE) Urine Benzodiazepines Screen Neg (NEGATIVE) Urine Cocaine Screen Neg (NEGATIVE) Urine Cannabinoids Screen Neg (NEGATIVE) Lactic Acid Level 2.8 mmol/L (0.4-2.0) Hemoglobin A1c 7.9 % A1C (<5.7) B-Type Natriuretic Peptide 26.35 pg/mL (0-100) Other Laboratory Tests 11/23/24 05:22 11/21/24 07:12 Brief Hx & Hospital Course: 8-year-old female with a history of multiple myeloma right kidney transplant recipient came in for generalized weakness found to have acute kidney injury treated with IV fluids seen by the senior project manager. Mild left upper chest wall infection treated with Rocephin mild UTI. Blood cultures negative urine cultures negative. Discharged home on doxycycline for upper chest wall infection. She will continue all her home medications follow up with the primary Dr Patient requesting to be discharged home today Consults/Reason for consult Nephrology Operations or Procedures None Condition at Discharge: Fair Final Diagnosis/Problems List Acute kidney injury donor renal transplant Sepsis secondary to urinary tract infection: Rocephin Metabolic acidosis Lactic acidosis Diabetes Hypertension History of multiple myeloma Left upper chest wall infection Right kidney transplant recipient Wound cultures negative Urine cultures negative Blood cultures negative Discharge Disposition: Home Discharge Instruct/Medications Diet: Cardiac 2g Na,low cholest Activity: Light activity Follow Up/Referral: Follow up with the primary Dr Medications: Doxycycline Transmitted to pharmacy 35 (Time taken for discharge summary 35 minutes) Discharge Statement: "Patient was advised to return to the ER or call 911 if any headaches, dizziness, shortness of breath, chest pain, abdominal pain, bleeding, fevers, or worsening of medical condition. Patient was counseled about treatment plan, medications, possible side effects, patientverbalized understanding. All questions were answered to the best of my ability. This discharge took greater then 30 minutes in planning, reviewing documentation, counseling the patient, and discussing with other team members." ASSESSMENT ASSESSMENT Hospital Course Improved Assessment Acute kidney injury donor renal transplant Sepsis secondary to urinary tract infection: Rocephin Metabolic acidosis Lactic acidosis Diabetes Hypertension History of multiple myeloma Left upper chest wall infection Right kidney transplant recipient Wound cultures negative Urine cultures negative Blood cultures negative Date of Service: Nov 23, 2024 Billing Provider: ISAEL LICEA MD Common Visit Codes: [id number]/[id number] DISCH DAY >30min ISAEL LICEA MD Nov 23, 2024 12:28
[2024-11-23 12:42] VITALS: BP 135/84; PULSE 104; TEMP 36.8
[2024-11-23 13:00] VITALS: BP 127/71; PULSE 68; RESP 16; TEMP 98.3; O2SAT 99
[2024-11-23] MEDS ORDERED: ATORVASTATIN 20 MG TAB PO SCH (22:00)
== END 2024-11-23 14:30 | disposition home or self-care (01) | DRG 871 ==
LOC: ER 05:52 → EDBD 05:52 → MERGE 10:42 → OVERFLOW 10:42 → WEST WING 10:51
PROVIDERS: ATTEND Family Medicine
PROC: 05HB33Z Insertion of Infusion Device into Right Basilic Vein, Percutaneous Approach (ICD-10-PCS; principal; 2024-11-21)
PROC: B54MZZA Ultrasonography of Right Upper Extremity Veins, Guidance (ICD-10-PCS; 2024-11-21)
DX: A41.9 Sepsis, unspecified organism (principal); G93.41 Metabolic encephalopathy; N17.0 Acute kidney failure with tubular necrosis; E87.20 Acidosis, unspecified; N39.0 Urinary tract infection, site not specified; I12.0 Hypertensive chronic kidney disease with stage 5 chronic kidney disease or end stage renal disease; C90.00 Multiple myeloma not having achieved remission; Z94.0 Kidney transplant status; T86.13 Kidney transplant infection; E11.65 Type 2 diabetes mellitus with hyperglycemia; I16.0 Hypertensive urgency; E11.22 Type 2 diabetes mellitus with diabetic chronic kidney disease; G89.29 Other chronic pain; Z88.0 Allergy status to penicillin; Z88.1 Allergy status to other antibiotic agents; Z85.828 Personal history of other malignant neoplasm of skin; Z82.3 Family history of stroke
CPT/HCPCS: 36415; 70450; 71045; 80048; 80053; 80307; 81001; 82962; 83036; 83605; 83880; 84484; 85025; 87040; 87086; 87205; 93005; 96365; 96375; G0378; J1815; J2405; J7507